=== PATIENT | male | born 1935 | race Caucasian/White ===

== ENCOUNTER 2016-07-19 11:07 | Emergency (ER) | payer OTHER ==
[~2016-07-19 11:07] MED LIST: ASPI81CH PO; ASPI81TA85 PO; ATOR80TA14 PO; CLOP75TA2 PO; COLA100C PO; DOCU10CA PO; FURO20TA2 PO; IMDU30TA PO; LASI20TA PO; LIPI80TA PO; LISI-538 PO; MAALSUS8 PO; MOM30SS PO; NITR4TASL SL; NORCOTAB PO; PRIL20CA PO; TYLE325T5 PO; ZEST20TA8 PO; aspirin; imdur; lipitor; lisinopril; nitrostat; spiriva INH
[2016-07-19 11:26] LABS: BASO # 0.1 K/mm3 (0.0-0.2); BASO % 1.3 % (0.0-1.0); EOS # 0.2 K/mm3 (0.0-0.50); EOS % 2.2 % (0.0-3.0); LARGE UNSTAINED CELL # 0.2 K/mm3 (0.0-0.4); LARGE UNSTAINED CELL % 2.4 % (0.0-4.0); LYMPH % 38.8 % (24.0-44.0); MEAN CORPUSCULAR HEMOGLOBIN 28.8 pg (27.0-33.0); MEAN CORPUSCULAR HGB CONC 32.8 g/dl (32.0-36.5); MEAN CORPUSCULAR VOLUME 87.7 fl (80.0-96.0); MONO # 0.5 K/mm3 (0.0-0.8); MONO % 6.9 % (0.0-5.0); NEUTROPHILS # 3.5 K/mm3 (1.8-7.7); NEUTROPHILS % 48.4 % (36.0-66.0); PLATELET COUNT, AUTOMATED 178 k/mm3 (150-450); RED CELL DISTRIBUTION WIDTH 13.8 % (11.5-14.5); WHITE BLOOD COUNT 7.2 K/mm3 (4.0-10.0)
[2016-07-19 11:47] LABS: ANION GAP 7 MEQ/L (8-16); BLOOD UREA NITROGEN 20 MG/DL (7-18); CALCIUM LEVEL 8.5 MG/DL (8.8-10.2); CARBON DIOXIDE LEVEL 27 MEQ/L (21-32); CHLORIDE LEVEL 108 MEQ/L (98-107); CREATININE FOR GFR 1.25 MG/DL (0.70-1.30); GLOMERULAR FILTRATION RATE 59.3 (>42); GLUCOSE, FASTING 135 MG/DL (83-110); POTASSIUM SERUM 4.1 MEQ/L (3.5-5.1); SODIUM LEVEL 142 MEQ/L (136-145)
--- NOTE | 2016-07-19 12:02 | REP ---
CHEST X-RAY: Portable upright semi-erect view. HISTORY: Chest pain. Comparison chest x-ray April 12, 2015. FINDINGS: There are old granulomatous calcifications scattered about the lung watson bilaterally. EKG monitoring electrodes overlie the chest. Heart is not felt to be enlarged. The aorta is somewhat tortuous. Pulmonary vasculature is not increased. No infiltrate is seen. IMPRESSION: No active disease. Old granulomatous changes. Signed by Les Menon MD 07/19/2016 02:00 P
--- NOTE | 2016-07-19 15:02 | EDDOCDS ---
Physician Documentation [facility] Name: Celso Armando Age: 80 yrs Sex: Male : 1935 Arrival Date: 07/19/2016 Time: 11:07 Bed 12 Private MD: Zhane Dawkins A Disposition: 07/19/16 14:50 Discharged to Home/Self Care. Impression: Chest pain, unspecified. - Condition is Stable. - Discharge Instructions: Nonspecific Chest Pain. - Medication Reconciliation, Local Pharmacy Hours form. - Follow up: Zhane Dwakins; When: Call to arrange an appointment; Reason: Recheck today's complaints. - Problem is new. - Symptoms have improved. - Notes: You were evaluated in the emergency department for chest pain. Your laboratory results reported no acute changes. Your EKG reported no acute changes from a prior EKG. Please schedule an appointment withZhane Dawkinsat your soonest convenience to follow-up on today's complaints. Historical: - Allergies: no known allergies; - Home Meds: 1. Lipitor 40 mg Oral tab 1 tab once daily (Last dose: 07/19/2016 07:00) 2. aspirin 81 mg Oral tab 1 tab once daily (Last dose: 07/19/2016 07:00) - PMHx: [place] x 2; colon CA; Hypercholesterolemia; - PSHx: stents x 2; Colon Resection; Hernia repair- Umbilical; Shoulder Arthroplasty, Left; right thumb amputation; - Social history: Smoking status: Patient states was never smoker of tobacco. No barriers to communication noted, Speaks appropriately for age. - Family history: Not pertinent. - : The pt / caregiver states he / she is not on anticoagulants. Home medication list is obtained from the patient, Unable to Verify Home Med List with the patient / caregiver. - Exposure Risk Screening:: None identified. Vital Signs: 07/19 11:08 BP 147 / 76; Pulse 114; Resp 18 S; Temp 97.1; Pulse Ox 97% on R/A; Weight 98.88 kg / dd6 217.99 lbs (R); Height 5 ft. 9 in. (175.26 cm); 11:21 BP 138 / 72 (auto/); ml6 11:21 Pulse 46 MON; Resp 16; Pulse Ox 94% on R/A; ml6 11:36 BP 126 / 64 (auto/); ml6 11:36 Pulse 46 MON; Resp 16; Pulse Ox 93% on R/A; ml6 11:51 BP 133 / 73 (auto/); ml6 11:51 Pulse 48 MON; Resp 16; Pulse Ox 93% on R/A; Pain 0/10; ml6 12:06 BP 128 / 69 (auto/); ml6 12:06 Pulse 42 MON; Resp 16; Pulse Ox 94% on R/A; Pain 0/10; ml6 12:21 BP 133 / 75 (auto/); ml6 12:21 Pulse 44 MON; Resp 16; Pulse Ox 94% on R/A; Pain 0/10; ml6 12:36 BP 131 / 73 (auto/); ml6 12:36 Pulse 44 MON; Resp 18; Pulse Ox 93% on R/A; ml6 12:51 BP 134 / 65 (auto/); ml6 12:51 Pulse 44 MON; Resp 16; Pulse Ox 94% on R/A; ml6 12:51 BP 155 / 62; Pulse 44; Resp 16; Temp 97.4(O); Pulse Ox 98% on R/A; Pain 0/10; ml6 13:06 BP 132 / 71 (auto/); ml6 13:06 Pulse 44 MON; Resp 16; Pulse Ox 93% on R/A; ml6 13:21 BP 130 / 68 (auto/); ml6 13:21 Pulse 42 MON; Resp 16; Pulse Ox 93% on R/A; ml6 13:36 BP 136 / 74 (auto/); ml6 13:36 Pulse 42 MON; Resp 16; Pulse Ox 93% on R/A; ml6 13:51 BP 134 / 71 (auto/); ml6 13:51 Pulse 40 MON; Resp 16; Pulse Ox 97% on R/A; Pain 0/10; ml6 14:06 BP 149 / 83 (auto/); ml6 14:06 Pulse 50 MON; Resp 16; Pulse Ox 95% on R/A; Pain 0/10; ml6 14:21 BP 163 / 64 (auto/); ml6 14:21 Pulse 44 MON; Resp 16; Pulse Ox 94% on R/A; Pain 0/10; ml6 11:08 Body Mass Index 32.19 (98.88 kg, 175.26 cm) dd6 MDM: 11:13 ECG WITH READING ER PHYS+CARDIAG ordered. EDMS 11:14 Dopeman/Pulse Ox/q 30 min VS ordered. sd1 11:14 IV Saline Lock ordered. sd1 11:14 Rhythm Strip to chart ordered. sd1 11:14 Undress patient appropriately for examination ordered. sd1 11:14 portable chest Ordered. EDMS 11:14 Basic Metabolic Profile Ordered. EDMS 11:14 CBC with Diff Ordered. EDMS 11:15 Cardiac Injury Profile Ordered. EDMS 11:15 Troponin Ordered. EDMS 12:00 Basic Metabolic Profile Reviewed. sd1 12:00 CBC with Diff Reviewed. sd1 12:00 Cardiac Injury Profile Reviewed. sd1 12:00 Troponin Reviewed. sd1 12:12 Financial registration complete. mm15 13:24 [facility] Payment Agreement was scanned into [employer] and attached to record. mm15 13:56 Repeat EKG (put time details section) ordered. jo4 13:56 Redraw CIP &Troponin (put time in details section) ordered. jo4 14:00 Redraw CIP &Troponin (put time in details section) complete. lbd 14:00 Repeat EKG (put time details section) complete. lbd 14:02 ECG WITH READING ER PHYS ordered. EDMS 14:03 CARDIAC MARKER PANEL Ordered. EDMS 14:46 CARDIAC MARKER PANEL Reviewed. jo4 Signatures: Dispatcher [employer] EDMS Summer Robb MD MD sd1 Kelli Collins, Conference Reservationist Unit lbd Aleks Medrano, RN RN ml6 Lamar Olmstead mm15 Mel Luna DO DO jo4 The chart was reviewed and I authenticate all verbal orders and agree with the evaluation and treatment provided.Attachments: 13:24 [facility] mm15 MTDD
--- NOTE | 2016-07-19 15:02 | EDDOCDS ---
Nurse's Notes [facility] Name: Celso Armando Age: 80 yrs Sex: Male : 1935 Arrival Date: 07/19/2016 Time: 11:07 Bed 12 Private MD: Zhane Dawkins A Diagnosis: Chest pain, unspecified Presentation: 07/19 11:10 Presenting complaint: Patient states: states substernal chest pain since 0700. Aspirin ml6 was taken DERRICK MAN. 81mg. Adult Sepsis Screening: The patient does not have new or worsening altered mentation. Patient's respiratory rate is less than 22. Systolic blood pressure is greater than 100. Patient has a qSOFA score of 0- Negative Sepsis Screen. Suicide/Homicide risk assessment- the patient denies having any suicidal and/or homicidal ideations and does not present with any other emotional, behavioral or mental health complaints. 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 Transition of care: patient was not received from another setting of care. 11:10 Acuity: JOSE ANTONIO Level 2 ml6 11:10 Method Of Arrival: Walkin/Carried/Asstd ml6 Triage Assessment: 11:10 General: Appears in no apparent distress, Behavior is anxious, cooperative. Pain: ml6 Location: chest Pain currently is 4 out of 10 on a pain scale. Pain does not radiate. Quality of pain is described as sharp, Pain began 3 hours ago Is continuous Alleviated by nothing. Aggravated by increased activity. The patient is triaged at the bedside. See Assessment in Nurses Notes section of ED record. Neurological: No deficits noted. 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 Cardiovascular: Capillary refill < 3 seconds is brisk in bilateral fingers toes Heart tones S1 S2 present Edema is absent. Pulses are all present. Rhythm is sinus bradycardia No ectopy. Chest pain is described as mild, quality is stabbing, is located in substernal area radiates Does not radiate. episodes are continuous began 4 hours prior to arrival. Respiratory: No deficits noted. Airway is patent Respiratory effort is even, unlabored, Respiratory pattern is regular, symmetrical, Breath sounds are clear bilaterally. GI: No deficits noted. Abdomen is flat, non- distended Bowel sounds present X 4 quads. Historical: - Allergies: no known allergies; - Home Meds: 1. Lipitor 40 mg Oral tab 1 tab once daily (Last dose: 07/19/2016 07:00) 2. aspirin 81 mg Oral tab 1 tab once daily (Last dose: 07/19/2016 07:00) - PMHx: [place] x 2; colon CA; Hypercholesterolemia; - PSHx: stents x 2; Colon Resection; Hernia repair- Umbilical; Shoulder Arthroplasty, Left; right thumb amputation; - Social history: Smoking status: Patient states was never smoker of tobacco. No barriers to communication noted, Speaks appropriately for age. - Family history: Not pertinent. - : The pt / caregiver states he / she is not on anticoagulants. Home medication list is obtained from the patient, Unable to Verify Home Med List with the patient / caregiver. - Exposure Risk Screening:: None identified. Screenin:29 Screening information is obtained from the patient. Fall risk: No risks identified. ml6 Assistance ADL's: requires no assistance with activities of daily living. Abuse/DV Screen: The patient / caregiver reports he/she is: not in a situation that causes fear, pain or injury. Nutritional screening: No deficits noted. Advance Directives: Currently, there is no health care proxy. home support is adequate. Assessment: 11:10 General: see triage assessment. Cardiovascular: Capillary refill < 3 seconds is brisk ml6 in bilateral fingers toes Heart tones S1 S2 present Edema is absent. Pulses are all present. Rhythm is sinus bradycardia No ectopy. Chest pain is described as mild, quality is stabbing, is located in substernal area radiates Does not radiate. episodes are continuous began 4 hours prior to arrival is aggravated by activity. 12:04 General: Appears in no apparent distress, comfortable, Behavior is appropriate for age, ml6 cooperative. Pain: Denies pain. Neurological: No deficits noted. Level of Consciousness is awake, alert, Oriented to person, place, time. Cardiovascular: No deficits noted. Capillary refill < 3 seconds is brisk in bilateral fingers toes Heart tones S1 S2 present Edema is absent. Pulses are all present. Rhythm is sinus bradycardia No ectopy. Chest pain is denied. Respiratory: No deficits noted. Airway is patent Respiratory effort is even, unlabored, Respiratory pattern is regular, symmetrical, Breath sounds are clear bilaterally. GI: No deficits noted. Abdomen is flat, non- distended Bowel sounds present X 4 quads. Abd is soft and non tender X 4 quads. 13:02 Reassessment: Patient appears in no apparent distress at this time. Patient denies pain ml6 at this time. Patient states feeling better. Patient states symptoms have improved. 14:02 Reassessment: Patient appears in no apparent distress at this time. Patient denies pain ml6 at this time. Patient states feeling better. Patient states symptoms have improved. NO CHANGE FROM PREVIOUS ASSESSMENT, PATIENT SLEEPING SOUNDLY. 14:59 General: Appears in no apparent distress, comfortable, Behavior is appropriate for age, ml6 cooperative. Pain: Denies pain. Neurological: No deficits noted. Level of Consciousness is awake, alert, Oriented to person, place, time. Cardiovascular: No deficits noted. Capillary refill < 3 seconds is brisk in bilateral fingers toes Heart tones S1 S2 present Edema is absent. Pulses are all present. Rhythm is sinus bradycardia No ectopy. Chest pain is denied. Vital Signs: 11:08 BP 147 / 76; Pulse 114; Resp 18 S; Temp 97.1; Pulse Ox 97% on R/A; Weight 98.88 kg (R); dd6 Height 5 ft. 9 in. (175.26 cm); 11:21 BP 138 / 72 (auto/); ml6 11:21 Pulse 46 MON; Resp 16; Pulse Ox 94% on R/A; ml6 11:36 BP 126 / 64 (auto/); ml6 11:36 Pulse 46 MON; Resp 16; Pulse Ox 93% on R/A; ml6 11:51 BP 133 / 73 (auto/); ml6 11:51 Pulse 48 MON; Resp 16; Pulse Ox 93% on R/A; Pain 0/10; ml6 12:06 BP 128 / 69 (auto/); ml6 12:06 Pulse 42 MON; Resp 16; Pulse Ox 94% on R/A; Pain 0/10; ml6 12:21 BP 133 / 75 (auto/); ml6 12:21 Pulse 44 MON; Resp 16; Pulse Ox 94% on R/A; Pain 0/10; ml6 12:36 BP 131 / 73 (auto/); ml6 12:36 Pulse 44 MON; Resp 18; Pulse Ox 93% on R/A; ml6 12:51 BP 134 / 65 (auto/); ml6 12:51 Pulse 44 MON; Resp 16; Pulse Ox 94% on R/A; ml6 12:51 BP 155 / 62; Pulse 44; Resp 16; Temp 97.4(O); Pulse Ox 98% on R/A; Pain 0/10; ml6 13:06 BP 132 / 71 (auto/); ml6 13:06 Pulse 44 MON; Resp 16; Pulse Ox 93% on R/A; ml6 13:21 BP 130 / 68 (auto/); ml6 13:21 Pulse 42 MON; Resp 16; Pulse Ox 93% on R/A; ml6 13:36 BP 136 / 74 (auto/); ml6 13:36 Pulse 42 MON; Resp 16; Pulse Ox 93% on R/A; ml6 13:51 BP 134 / 71 (auto/); ml6 13:51 Pulse 40 MON; Resp 16; Pulse Ox 97% on R/A; Pain 0/10; ml6 14:06 BP 149 / 83 (auto/); ml6 14:06 Pulse 50 MON; Resp 16; Pulse Ox 95% on R/A; Pain 0/10; ml6 14:21 BP 163 / 64 (auto/); ml6 14:21 Pulse 44 MON; Resp 16; Pulse Ox 94% on R/A; Pain 0/10; ml6 11:08 Body Mass Index 32.19 (98.88 kg, 175.26 cm) dd6 Vitals: 11:08 Log In Time: July 19, 2016 at 11:06. dd6 11:09 RN notified that patient meets Red Flag criteria. dd6 ED Course: 11:08 Patient visited by Pillo Herrera PCA. dd6 11:08 Zhane Dawkins is Private Physician. dd6 11:08 Patient moved to Waiting dd6 11:10 Patient moved to 12 dd6 11:10 The patient / caregiver is instructed regarding the plan of care and ED course. Cardiac ml6 monitor on. Pulse ox on. NIBP on. 11:10 Inserted peripheral IV: 16gauge IV in right antecubital area. No procedures done that ml6 require assistance. Labs drawn. (by ED staff). 11:20 Mel [facility] jo4 11:20 Summer Robb MD is Attending Physician. jo4 11:23 Triage Initiated ml6 11:29 EKG done. (by ED staff). Reviewed by Mel Luna DO. jb5 11:30 Patient visited by Sugar Leal PCA. jb5 11:43 Patient visited by Mel Luna DO. jo4 11:43 Patient visited by Mel Luna DO. jo4 12:15 portable chest Returned. EDMS 12:21 Patient visited by Aleks Medrano RN. ml6 13:08 Patient visited by Aleks Medrano RN. ml6 13:24 [facility] Payment Agreement was scanned into [employer] and attached to record. mm15 14:07 Patient visited by Aleks Medrano RN. ml6 14:13 EKG done. (by ED staff). Reviewed by Mel Luna DO. nb2 14:16 Patient visited by Stacey Smith. nb2 14:50 Zhane Dawkins is Referral Physician. jo4 15:00 Discontinued IV bleeding controlled, pressure dressing applied, No redness/swelling at 6 site. Order Results: Lab Order: Basic Metabolic Profile; SPEC'M 07/19/16 11:20 Test: GLUCOSE, FASTING; Value: 135; Range: 83-110; Abnormal: Above high normal; Units: MG/DL; Status: F Test: BLOOD UREA NITROGEN; Value: 20; Range: 7-18; Abnormal: Above high normal; Units: MG/DL; Status: F Test: CREATININE FOR GFR; Value: 1.25; Range: 0.70-1.30; Units: MG/DL; Status: F Test: GLOMERULAR FILTRATION RATE; Value: 59.3; Range: >42; Status: F Test: SODIUM LEVEL; Value: 142; Range: 136-145; Units: MEQ/L; Status: F Test: POTASSIUM SERUM; Value: 4.1; Range: 3.5-5.1; Units: MEQ/L; Status: F Test: CHLORIDE LEVEL; Value: 108; Range: 98-107; Abnormal: Above high normal; Units: MEQ/L; Status: F Test: CARBON DIOXIDE LEVEL; Value: 27; Range: 21-32; Units: MEQ/L; Status: F Test: ANION GAP; Value: 7; Range: 8-16; Abnormal: Below low normal; Units: MEQ/L; Status: F Test: CALCIUM LEVEL; Value: 8.5; Range: 8.8-10.2; Abnormal: Below low normal; Units: MG/DL; Status: F Test Note: ; Units are mL/min/1.73 m2 Chronic Kidney Disease Staging per NKF: Stage I & II GFR >=60 Normal to Mildly Decreased Stage III GFR 30-59 Moderately Decreased Stage IV GFR 15-29 Severely Decreased Stage V GFR <15 Very Little GFR Left ESRD GFR <15 on TREE TRIMMING SUPERVISOR Lab Order: CBC with Diff; SPEC'M 07/19/16 11:20 Test: WHITE BLOOD COUNT; Value: 7.2; Range: 4.0-10.0; Units: K/mm3; Status: F Test: RED BLOOD COUNT; Value: 5.29; Range: 4.30-6.10; Units: M/mm3; Status: F Test: HEMOGLOBIN; Value: 15.2; Range: 14.0-18.0; Units: g/dl; Status: F Test: HEMATOCRIT; Value: 46.4; Range: 42.0-52.0; Units: %; Status: F Test: MEAN CORPUSCULAR VOLUME; Value: 87.7; Range: 80.0-96.0; Units: fl; Status: F Test: MEAN CORPUSCULAR HEMOGLOBIN; Value: 28.8; Range: 27.0-33.0; Units: pg; Status: F Test: MEAN CORPUSCULAR HGB CONC; Value: 32.8; Range: 32.0-36.5; Units: g/dl; Status: F Test: RED CELL DISTRIBUTION WIDTH; Value: 13.8; Range: 11.5-14.5; Units: %; Status: F Test: PLATELET COUNT, AUTOMATED; Value: 178; Range: 150-450; Units: k/mm3; Status: F Test: NEUTROPHILS %; Value: 48.4; Range: 36.0-66.0; Units: %; Status: F Test: LYMPH %; Value: 38.8; Range: 24.0-44.0; Units: %; Status: F Test: MONO %; Value: 6.9; Range: 0.0-5.0; Abnormal: Above high normal; Units: %; Status: F Test: EOS %; Value: 2.2; Range: 0.0-3.0; Units: %; Status: F Test: BASO %; Value: 1.3; Range: 0.0-1.0; Abnormal: Above high normal; Units: %; Status: F Test: LARGE UNSTAINED CELL %; Value: 2.4; Range: 0.0-4.0; Units: %; Status: F Test: NEUTROPHILS #; Value: 3.5; Range: 1.8-7.7; Units: K/mm3; Status: F Test: LYMPH #; Value: 3.0; Range: 1.5-4.5; Units: K/mm3; Status: F Test: MONO #; Value: 0.5; Range: 0.0-0.8; Units: K/mm3; Status: F Test: EOS #; Value: 0.2; Range: 0.0-0.50; Units: K/mm3; Status: F Test: BASO #; Value: 0.1; Range: 0.0-0.2; Units: K/mm3; Status: F Test: LARGE UNSTAINED CELL #; Value: 0.2; Range: 0.0-0.4; Units: K/mm3; Status: F Lab Order: Cardiac Injury Profile; SPEC'M 07/19/16 11:20 Test: CPK CREATINE PHOSPHOKINASE; Value: 98; Range: 39-308; Units: U/L; Status: F Test: CK-MB VALUE MASS; Value: 1.8; Range: 0.0-3.6; Units: NG/ML; Status: F Test: MB/CK RELATIVE INDEX; Value: 1.83; Range: < OR =4; Status: F Test Note: ; DIAGNOSIS CRITERIA MMB ng/ml Relative Index (RI) NON-AMI < or = 5 N/A PHIPPS ZONE > 5 < or = 4 AMI > 5 > 4 Lab Order: Troponin; SPEC'M 07/19/16 11:20 Test: TROPONIN I; Value: < 0.02; Range: < 0.10; Units: NG/ML; Status: F Test Note: ; Troponin I Reference Interval for [place] LOCI: 99th Percentile= 0.00-0.045 ng/ml Risk Stratification: <= 0.10 ng/ml Decreased Risk for Adverse Clinical Events. 0.10-1.50 ng/ml Increased Risk for Adverse Clinical Events. Evaluation of additional criterion and/or repeat testing in 2-6 hours is suggested to rule out myocardial damage. >= 1.50 ng/ml Indicative of Myocardial Injury. Lab Order: CARDIAC MARKER PANEL; SPEC'M 07/19/16 14:12 Test: CPK CREATINE PHOSPHOKINASE; Value: 91; Range: 39-308; Units: U/L; Status: F Test: CK-MB VALUE MASS; Value: 1.8; Range: 0.0-3.6; Units: NG/ML; Status: F Test: MB/CK RELATIVE INDEX; Value: 1.97; Range: < OR =4; Status: F Test: TROPONIN I; Value: < 0.02; Range: < 0.10; Units: NG/ML; Status: F Test Note: ; DIAGNOSIS CRITERIA MMB ng/ml Relative Index (RI) NON-AMI < or = 5 N/A PHIPPS ZONE > 5 < or = 4 AMI > 5 > 4 Radiology Order: portable chest Test: portable chest REASON FOR EXAMINATION: Chest Pain; CHEST X-RAY: Portable upright semi-erect view.; ; HISTORY: Chest pain.; ; Comparison chest x-ray April 12, 2015.; ; FINDINGS: There are old granulomatous calcifications scattered about the lung; watson bilaterally. EKG monitoring electrodes overlie the chest. Heart is not; felt to be enlarged. The aorta is somewhat tortuous. Pulmonary vasculature is; not increased. No infiltrate is seen.; ; IMPRESSION: No active disease. Old granulomatous changes.; ; ; Signed by; Les Menon MD 07/19/2016 02:00 P; Outcome: 14:50 Discharge ordered by Provider. jo4 15:01 Discharge Assessment: patient administered narcotics - no. The following High Risk ml6 Discharge criteria are identified: None. Discharged to home ambulatory, with significant other. Condition: stable. Discharge instructions given to patient, Instructed on discharge instructions, Demonstrated understanding of instructions, medications, Pt was receptive of discharge instructions/ teaching. No special radiology studies were completed. Property sent home with patient. :Personal belongings accompany Pt. 15:01 Patient left the ED. ml6 Signatures: Dispatcher [employer] EDMS Sugar Leal PCA RECREATION COUNSELOR jb5 Pillo Herrera, RECREATION COUNSELOR RECREATION COUNSELOR dd6 Aleks Medrano, RN RN ml6 Lamar Olmstead mm15 Mel Luna DO DO jo4 Stacey Smith2 Corrections: (The following items were deleted from the chart) 11:30 11:10 Labs drawn. (by ED staff). EKG done. (by ED staff). Reviewed by Summer Robb MD ml6 MTDD
--- NOTE | 2016-07-19 19:29 | ECGEPIP ---
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
--- NOTE | 2016-07-21 15:28 | ECGEPIP ---
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
--- NOTE | 2016-07-21 16:03 | EDDOCDS ---
Physician Documentation [facility] Name: Celso Armando Age: 80 yrs Sex: Male : 1935 Arrival Date: 07/19/2016 Time: 11:07 Bed 12 Private MD: Zhane Dawkins A Disposition: 07/19/16 14:50 Discharged to Home/Self Care. Impression: Chest pain, unspecified. - Condition is Stable. - Discharge Instructions: Nonspecific Chest Pain. - Medication Reconciliation, Local Pharmacy Hours form. - Follow up: Zhane Dawkins; When: Call to arrange an appointment; Reason: Recheck today's complaints. - Problem is new. - Symptoms have improved. - Notes: You were evaluated in the emergency department for chest pain. Your laboratory results reported no acute changes. Your EKG reported no acute changes from a prior EKG. Please schedule an appointment withZhane Dawkinsat your soonest convenience to follow-up on today's complaints. Historical: - Allergies: no known allergies; - Home Meds: 1. Lipitor 40 mg Oral tab 1 tab once daily (Last dose: 07/19/2016 07:00) 2. aspirin 81 mg Oral tab 1 tab once daily (Last dose: 07/19/2016 07:00) - PMHx: [place] x 2; colon CA; Hypercholesterolemia; - PSHx: stents x 2; Colon Resection; Hernia repair- Umbilical; Shoulder Arthroplasty, Left; right thumb amputation; - Social history: Smoking status: Patient states was never smoker of tobacco. No barriers to communication noted, Speaks appropriately for age. - Family history: Not pertinent. - : The pt / caregiver states he / she is not on anticoagulants. Home medication list is obtained from the patient, Unable to Verify Home Med List with the patient / caregiver. - Exposure Risk Screening:: None identified. Vital Signs: 07/19 11:08 BP 147 / 76; Pulse 114; Resp 18 S; Temp 97.1; Pulse Ox 97% on R/A; Weight 98.88 kg / dd6 217.99 lbs (R); Height 5 ft. 9 in. (175.26 cm); 11:21 BP 138 / 72 (auto/); ml6 11:21 Pulse 46 MON; Resp 16; Pulse Ox 94% on R/A; ml6 11:36 BP 126 / 64 (auto/); ml6 11:36 Pulse 46 MON; Resp 16; Pulse Ox 93% on R/A; ml6 11:51 BP 133 / 73 (auto/); ml6 11:51 Pulse 48 MON; Resp 16; Pulse Ox 93% on R/A; Pain 0/10; ml6 12:06 BP 128 / 69 (auto/); ml6 12:06 Pulse 42 MON; Resp 16; Pulse Ox 94% on R/A; Pain 0/10; ml6 12:21 BP 133 / 75 (auto/); ml6 12:21 Pulse 44 MON; Resp 16; Pulse Ox 94% on R/A; Pain 0/10; ml6 12:36 BP 131 / 73 (auto/); ml6 12:36 Pulse 44 MON; Resp 18; Pulse Ox 93% on R/A; ml6 12:51 BP 134 / 65 (auto/); ml6 12:51 Pulse 44 MON; Resp 16; Pulse Ox 94% on R/A; ml6 12:51 BP 155 / 62; Pulse 44; Resp 16; Temp 97.4(O); Pulse Ox 98% on R/A; Pain 0/10; ml6 13:06 BP 132 / 71 (auto/); ml6 13:06 Pulse 44 MON; Resp 16; Pulse Ox 93% on R/A; ml6 13:21 BP 130 / 68 (auto/); ml6 13:21 Pulse 42 MON; Resp 16; Pulse Ox 93% on R/A; ml6 13:36 BP 136 / 74 (auto/); ml6 13:36 Pulse 42 MON; Resp 16; Pulse Ox 93% on R/A; ml6 13:51 BP 134 / 71 (auto/); ml6 13:51 Pulse 40 MON; Resp 16; Pulse Ox 97% on R/A; Pain 0/10; ml6 14:06 BP 149 / 83 (auto/); ml6 14:06 Pulse 50 MON; Resp 16; Pulse Ox 95% on R/A; Pain 0/10; ml6 14:21 BP 163 / 64 (auto/); ml6 14:21 Pulse 44 MON; Resp 16; Pulse Ox 94% on R/A; Pain 0/10; ml6 11:08 Body Mass Index 32.19 (98.88 kg, 175.26 cm) dd6 MDM: 11:13 ECG WITH READING ER PHYS+CARDIAG ordered. EDMS 11:14 Studio Grip/Pulse Ox/q 30 min VS ordered. sd1 11:14 IV Saline Lock ordered. sd1 11:14 Rhythm Strip to chart ordered. sd1 11:14 Undress patient appropriately for examination ordered. sd1 11:14 portable chest Ordered. EDMS 11:14 Basic Metabolic Profile Ordered. EDMS 11:14 CBC with Diff Ordered. EDMS 11:15 Cardiac Injury Profile Ordered. EDMS 11:15 Troponin Ordered. EDMS 12:00 Basic Metabolic Profile Reviewed. sd1 12:00 CBC with Diff Reviewed. sd1 12:00 Cardiac Injury Profile Reviewed. sd1 12:00 Troponin Reviewed. sd1 12:12 Financial registration complete. mm15 13:24 COUNT INCLUDES THE [facility] Payment Agreement was scanned into [employer] and attached to record. mm15 13:56 Repeat EKG (put time details section) ordered. jo4 13:56 Redraw CIP &Troponin (put time in details section) ordered. jo4 14:00 Redraw CIP &Troponin (put time in details section) complete. lbd 14:00 Repeat EKG (put time details section) complete. lbd 14:02 ECG WITH READING ER PHYS ordered. EDMS 14:03 CARDIAC MARKER PANEL Ordered. EDMS 14:46 CARDIAC MARKER PANEL Reviewed. [facility] 07/20 08:12 ECG/EKG was scanned into [employer] and attached to record. gb 09:25 T-Sheet-- Draft Copy was scanned into [employer] and attached to record. [facility] Signatures: Dispatcher [employer] EDSummer Amaya MD MD sd1 Kelli Collins, Stage Producer Unit lbd Brisa Shah, Reg Reg gb Aleks Medrano, RN RN ml6 Lamar Olmstead mm15 Mel Luna DO DO jo4 Hoffert, Sarah [facility] The chart was reviewed and I authenticate all verbal orders and agree with the evaluation and treatment provided.Attachments: 07/19 13:24 COUNT INCLUDES THE [facility] Payment Agreement mm15 07/20 08:12 ECG/EKG gb 09:25 T-Sheet-- Draft Copy [facility] Chart Complete MTDD
--- NOTE | 2016-07-21 16:03 | EDDOCDS ---
Physician Documentation [facility] Name: Celso Armando Age: 80 yrs Sex: Male : 1935 Arrival Date: 07/19/2016 Time: 11:07 Bed 12 Private MD: Zhane Dawkins A Disposition: 07/19/16 14:50 Discharged to Home/Self Care. Impression: Chest pain, unspecified. - Condition is Stable. - Discharge Instructions: Nonspecific Chest Pain. - Medication Reconciliation, Local Pharmacy Hours form. - Follow up: Zhane Dawkins; When: Call to arrange an appointment; Reason: Recheck today's complaints. - Problem is new. - Symptoms have improved. - Notes: You were evaluated in the emergency department for chest pain. Your laboratory results reported no acute changes. Your EKG reported no acute changes from a prior EKG. Please schedule an appointment withZhane Dawkinsat your soonest convenience to follow-up on today's complaints. Historical: - Allergies: no known allergies; - Home Meds: 1. Lipitor 40 mg Oral tab 1 tab once daily (Last dose: 07/19/2016 07:00) 2. aspirin 81 mg Oral tab 1 tab once daily (Last dose: 07/19/2016 07:00) - PMHx: CT x 2; colon CA; Hypercholesterolemia; - PSHx: stents x 2; Colon Resection; Hernia repair- Umbilical; Shoulder Arthroplasty, Left; right thumb amputation; - Social history: Smoking status: Patient states was never smoker of tobacco. No barriers to communication noted, Speaks appropriately for age. - Family history: Not pertinent. - : The pt / caregiver states he / she is not on anticoagulants. Home medication list is obtained from the patient, Unable to Verify Home Med List with the patient / caregiver. - Exposure Risk Screening:: None identified. Vital Signs: 07/19 11:08 BP 147 / 76; Pulse 114; Resp 18 S; Temp 97.1; Pulse Ox 97% on R/A; Weight 98.88 kg / dd6 217.99 lbs (R); Height 5 ft. 9 in. (175.26 cm); 11:21 BP 138 / 72 (auto/); ml6 11:21 Pulse 46 MON; Resp 16; Pulse Ox 94% on R/A; ml6 11:36 BP 126 / 64 (auto/); ml6 11:36 Pulse 46 MON; Resp 16; Pulse Ox 93% on R/A; ml6 11:51 BP 133 / 73 (auto/); ml6 11:51 Pulse 48 MON; Resp 16; Pulse Ox 93% on R/A; Pain 0/10; ml6 12:06 BP 128 / 69 (auto/); ml6 12:06 Pulse 42 MON; Resp 16; Pulse Ox 94% on R/A; Pain 0/10; ml6 12:21 BP 133 / 75 (auto/); ml6 12:21 Pulse 44 MON; Resp 16; Pulse Ox 94% on R/A; Pain 0/10; ml6 12:36 BP 131 / 73 (auto/); ml6 12:36 Pulse 44 MON; Resp 18; Pulse Ox 93% on R/A; ml6 12:51 BP 134 / 65 (auto/); ml6 12:51 Pulse 44 MON; Resp 16; Pulse Ox 94% on R/A; ml6 12:51 BP 155 / 62; Pulse 44; Resp 16; Temp 97.4(O); Pulse Ox 98% on R/A; Pain 0/10; ml6 13:06 BP 132 / 71 (auto/); ml6 13:06 Pulse 44 MON; Resp 16; Pulse Ox 93% on R/A; ml6 13:21 BP 130 / 68 (auto/); ml6 13:21 Pulse 42 MON; Resp 16; Pulse Ox 93% on R/A; ml6 13:36 BP 136 / 74 (auto/); ml6 13:36 Pulse 42 MON; Resp 16; Pulse Ox 93% on R/A; ml6 13:51 BP 134 / 71 (auto/); ml6 13:51 Pulse 40 MON; Resp 16; Pulse Ox 97% on R/A; Pain 0/10; ml6 14:06 BP 149 / 83 (auto/); ml6 14:06 Pulse 50 MON; Resp 16; Pulse Ox 95% on R/A; Pain 0/10; ml6 14:21 BP 163 / 64 (auto/); ml6 14:21 Pulse 44 MON; Resp 16; Pulse Ox 94% on R/A; Pain 0/10; ml6 11:08 Body Mass Index 32.19 (98.88 kg, 175.26 cm) dd6 MDM: 11:13 ECG WITH READING ER PHYS+CARDIAG ordered. EDMS 11:14 Physical Fitness Teacher/Pulse Ox/q 30 min VS ordered. sd1 11:14 IV Saline Lock ordered. sd1 11:14 Rhythm Strip to chart ordered. sd1 11:14 Undress patient appropriately for examination ordered. sd1 11:14 portable chest Ordered. EDMS 11:14 Basic Metabolic Profile Ordered. EDMS 11:14 CBC with Diff Ordered. EDMS 11:15 Cardiac Injury Profile Ordered. EDMS 11:15 Troponin Ordered. EDMS 12:00 Basic Metabolic Profile Reviewed. sd1 12:00 CBC with Diff Reviewed. sd1 12:00 Cardiac Injury Profile Reviewed. sd1 12:00 Troponin Reviewed. sd1 12:12 Financial registration complete. mm15 13:24 [facility] Payment Agreement was scanned into [employer] and attached to record. mm15 13:56 Repeat EKG (put time details section) ordered. jo4 13:56 Redraw CIP &Troponin (put time in details section) ordered. jo4 14:00 Redraw CIP &Troponin (put time in details section) complete. lbd 14:00 Repeat EKG (put time details section) complete. lbd 14:02 ECG WITH READING ER PHYS ordered. EDMS 14:03 CARDIAC MARKER PANEL Ordered. EDMS 14:46 CARDIAC MARKER PANEL Reviewed. [facility] 07/20 08:12 ECG/EKG was scanned into [employer] and attached to record. gb 09:25 T-Sheet-- Draft Copy was scanned into [employer] and attached to record. [facility] Signatures: Dispatcher [employer] EDSummer Amaya MD MD sd1 Kelli Collins, Tools Programmer Unit lbd Brisa Shah, Reg Reg gb Aleks Medrano, RN RN ml6 Lamar Olmstead mm15 Mel Luna DO DO jo4 Hoffert, Sarah [facility] The chart was reviewed and I authenticate all verbal orders and agree with the evaluation and treatment provided.Attachments: 07/19 13:24 [facility] Payment Agreement mm15 07/20 08:12 ECG/EKG gb 09:25 T-Sheet-- Draft Copy [facility] Chart Complete MTDD
--- NOTE | 2016-07-21 16:03 | EDDOCDS ---
Nurse's Notes [facility] Name: Neftaly Lopez Age: 80 yrs Sex: Male : 1935 Arrival Date: 07/19/2016 Time: 11:07 Bed 12 Private MD: Zhane Dawkins A Diagnosis: Chest pain, unspecified Presentation: 07/19 11:10 Presenting complaint: Patient states: states substernal chest pain since 0700. 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 Adult Sepsis Screening: The patient does not have new or worsening altered mentation. Patient's respiratory rate is less than 22. Systolic blood pressure is greater than 100. Patient has a qSOFA score of 0- Negative Sepsis Screen. Suicide/Homicide risk assessment- the patient denies having any suicidal and/or homicidal ideations and does not present with any other emotional, behavioral or mental health complaints. 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 Transition of care: patient was not received from another setting of care. 11:10 Acuity: JOSE ANTONIO Level 2 ml6 11:10 Method Of Arrival: Walkin/Carried/Asstd ml6 Triage Assessment: 11:10 General: Appears in no apparent distress, Behavior is anxious, cooperative. Pain: ml6 Location: chest Pain currently is 4 out of 10 on a pain scale. Pain does not radiate. Quality of pain is described as sharp, Pain began 3 hours ago Is continuous Alleviated by nothing. Aggravated by increased activity. The patient is triaged at the bedside. See Assessment in Nurses Notes section of ED record. Neurological: No deficits noted. 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 Cardiovascular: Capillary refill < 3 seconds is brisk in bilateral fingers toes Heart tones S1 S2 present Edema is absent. Pulses are all present. Rhythm is sinus bradycardia No ectopy. Chest pain is described as mild, quality is stabbing, is located in substernal area radiates Does not radiate. episodes are continuous began 4 hours prior to arrival. Respiratory: No deficits noted. Airway is patent Respiratory effort is even, unlabored, Respiratory pattern is regular, symmetrical, Breath sounds are clear bilaterally. GI: No deficits noted. Abdomen is flat, non- distended Bowel sounds present X 4 quads. Historical: - Allergies: no known allergies; - Home Meds: 1. Lipitor 40 mg Oral tab 1 tab once daily (Last dose: 07/19/2016 07:00) 2. aspirin 81 mg Oral tab 1 tab once daily (Last dose: 07/19/2016 07:00) - PMHx: CT x 2; colon CA; Hypercholesterolemia; - PSHx: stents x 2; Colon Resection; Hernia repair- Umbilical; Shoulder Arthroplasty, Left; right thumb amputation; - Social history: Smoking status: Patient states was never smoker of tobacco. No barriers to communication noted, Speaks appropriately for age. - Family history: Not pertinent. - : The pt / caregiver states he / she is not on anticoagulants. Home medication list is obtained from the patient, Unable to Verify Home Med List with the patient / caregiver. - Exposure Risk Screening:: None identified. Screenin:29 Screening information is obtained from the patient. Fall risk: No risks identified. ml6 Assistance ADL's: requires no assistance with activities of daily living. Abuse/DV Screen: The patient / caregiver reports he/she is: not in a situation that causes fear, pain or injury. Nutritional screening: No deficits noted. Advance Directives: Currently, there is no health care proxy. home support is adequate. Assessment: 11:10 General: see triage assessment. Cardiovascular: Capillary refill < 3 seconds is brisk ml6 in bilateral fingers toes Heart tones S1 S2 present Edema is absent. Pulses are all present. Rhythm is sinus bradycardia No ectopy. Chest pain is described as mild, quality is stabbing, is located in substernal area radiates Does not radiate. episodes are continuous began 4 hours prior to arrival is aggravated by activity. 12:04 General: Appears in no apparent distress, comfortable, Behavior is appropriate for age, ml6 cooperative. Pain: Denies pain. Neurological: No deficits noted. Level of Consciousness is awake, alert, Oriented to person, place, time. Cardiovascular: No deficits noted. Capillary refill < 3 seconds is brisk in bilateral fingers toes Heart tones S1 S2 present Edema is absent. Pulses are all present. Rhythm is sinus bradycardia No ectopy. Chest pain is denied. Respiratory: No deficits noted. Airway is patent Respiratory effort is even, unlabored, Respiratory pattern is regular, symmetrical, Breath sounds are clear bilaterally. GI: No deficits noted. Abdomen is flat, non- distended Bowel sounds present X 4 quads. Abd is soft and non tender X 4 quads. 13:02 Reassessment: Patient appears in no apparent distress at this time. Patient denies pain ml6 at this time. Patient states feeling better. Patient states symptoms have improved. 14:02 Reassessment: Patient appears in no apparent distress at this time. Patient denies pain ml6 at this time. Patient states feeling better. Patient states symptoms have improved. NO CHANGE FROM PREVIOUS ASSESSMENT, PATIENT SLEEPING SOUNDLY. 14:59 General: Appears in no apparent distress, comfortable, Behavior is appropriate for age, ml6 cooperative. Pain: Denies pain. Neurological: No deficits noted. Level of Consciousness is awake, alert, Oriented to person, place, time. Cardiovascular: No deficits noted. Capillary refill < 3 seconds is brisk in bilateral fingers toes Heart tones S1 S2 present Edema is absent. Pulses are all present. Rhythm is sinus bradycardia No ectopy. Chest pain is denied. Vital Signs: 11:08 BP 147 / 76; Pulse 114; Resp 18 S; Temp 97.1; Pulse Ox 97% on R/A; Weight 98.88 kg (R); dd6 Height 5 ft. 9 in. (175.26 cm); 11:21 BP 138 / 72 (auto/); ml6 11:21 Pulse 46 MON; Resp 16; Pulse Ox 94% on R/A; ml6 11:36 BP 126 / 64 (auto/); ml6 11:36 Pulse 46 MON; Resp 16; Pulse Ox 93% on R/A; ml6 11:51 BP 133 / 73 (auto/); ml6 11:51 Pulse 48 MON; Resp 16; Pulse Ox 93% on R/A; Pain 0/10; ml6 12:06 BP 128 / 69 (auto/); ml6 12:06 Pulse 42 MON; Resp 16; Pulse Ox 94% on R/A; Pain 0/10; ml6 12:21 BP 133 / 75 (auto/); ml6 12:21 Pulse 44 MON; Resp 16; Pulse Ox 94% on R/A; Pain 0/10; ml6 12:36 BP 131 / 73 (auto/); ml6 12:36 Pulse 44 MON; Resp 18; Pulse Ox 93% on R/A; ml6 12:51 BP 134 / 65 (auto/); ml6 12:51 Pulse 44 MON; Resp 16; Pulse Ox 94% on R/A; ml6 12:51 BP 155 / 62; Pulse 44; Resp 16; Temp 97.4(O); Pulse Ox 98% on R/A; Pain 0/10; ml6 13:06 BP 132 / 71 (auto/); ml6 13:06 Pulse 44 MON; Resp 16; Pulse Ox 93% on R/A; ml6 13:21 BP 130 / 68 (auto/); ml6 13:21 Pulse 42 MON; Resp 16; Pulse Ox 93% on R/A; ml6 13:36 BP 136 / 74 (auto/); ml6 13:36 Pulse 42 MON; Resp 16; Pulse Ox 93% on R/A; ml6 13:51 BP 134 / 71 (auto/); ml6 13:51 Pulse 40 MON; Resp 16; Pulse Ox 97% on R/A; Pain 0/10; ml6 14:06 BP 149 / 83 (auto/); ml6 14:06 Pulse 50 MON; Resp 16; Pulse Ox 95% on R/A; Pain 0/10; ml6 14:21 BP 163 / 64 (auto/); ml6 14:21 Pulse 44 MON; Resp 16; Pulse Ox 94% on R/A; Pain 0/10; ml6 11:08 Body Mass Index 32.19 (98.88 kg, 175.26 cm) dd6 Vitals: 11:08 Log In Time: July 19, 2016 at 11:06. dd6 11:09 RN notified that patient meets Red Flag criteria. dd6 ED Course: 11:08 Patient visited by Pillo Herrera PCA. dd6 11:08 Zhane Dawkins is Private Physician. dd6 11:08 Patient moved to Waiting dd6 11:10 Patient moved to 12 dd6 11:10 The patient / caregiver is instructed regarding the plan of care and ED course. Cardiac ml6 monitor on. Pulse ox on. NIBP on. 11:10 Inserted peripheral IV: 16gauge IV in right antecubital area. No procedures done that ml6 require assistance. Labs drawn. (by ED staff). 11:20 [facility] jo4 11:20 Summer Robb MD is Attending Physician. jo4 11:23 Triage Initiated ml6 11:29 EKG done. (by ED staff). Reviewed by Mel Luna DO. jb5 11:30 Patient visited by Sugar Leal PCA. jb5 11:43 Patient visited by Mel Luna DO. jo4 11:43 Patient visited by Mel Luna DO. jo4 12:15 portable chest Returned. EDMS 12:21 Patient visited by Aleks Medrano RN. ml6 13:08 Patient visited by Aleks Medrano RN. ml6 13:24 [facility] Payment Agreement was scanned into Bilna and attached to record. mm15 14:07 Patient visited by Aleks Medrano RN. ml6 14:13 EKG done. (by ED staff). Reviewed by Mel Luna DO. nb2 14:16 Patient visited by Stacey Smith. nb2 14:50 Zhane Dawkins is Referral Physician. jo4 15:00 Discontinued IV bleeding controlled, pressure dressing applied, No redness/swelling at ml6 site. 19:42 EKG-ADULT Returned. EDMS 07/20 08:12 ECG/EKG was scanned into Bilna and attached to record. gb 09:25 T-Sheet-- Draft Copy was scanned into Bilna and attached to record. [facility] Order Results: Lab Order: Basic Metabolic Profile; SPEC'M 07/19/16 11:20 Test: GLUCOSE, FASTING; Value: 135; Range: 83-110; Abnormal: Above high normal; Units: MG/DL; Status: F Test: BLOOD UREA NITROGEN; Value: 20; Range: 7-18; Abnormal: Above high normal; Units: MG/DL; Status: F Test: CREATININE FOR GFR; Value: 1.25; Range: 0.70-1.30; Units: MG/DL; Status: F Test: GLOMERULAR FILTRATION RATE; Value: 59.3; Range: >42; Status: F Test: SODIUM LEVEL; Value: 142; Range: 136-145; Units: MEQ/L; Status: F Test: POTASSIUM SERUM; Value: 4.1; Range: 3.5-5.1; Units: MEQ/L; Status: F Test: CHLORIDE LEVEL; Value: 108; Range: 98-107; Abnormal: Above high normal; Units: MEQ/L; Status: F Test: CARBON DIOXIDE LEVEL; Value: 27; Range: 21-32; Units: MEQ/L; Status: F Test: ANION GAP; Value: 7; Range: 8-16; Abnormal: Below low normal; Units: MEQ/L; Status: F Test: CALCIUM LEVEL; Value: 8.5; Range: 8.8-10.2; Abnormal: Below low normal; Units: MG/DL; Status: F Test Note: ; Units are mL/min/1.73 m2 Chronic Kidney Disease Staging per NKF: Stage I & II GFR >=60 Normal to Mildly Decreased Stage III GFR 30-59 Moderately Decreased Stage IV GFR 15-29 Severely Decreased Stage V GFR <15 Very Little GFR Left ESRD GFR <15 on TOOL OR DIE DRAWING CHECKER Lab Order: CBC with Diff; SPEC'M 07/19/16 11:20 Test: WHITE BLOOD COUNT; Value: 7.2; Range: 4.0-10.0; Units: K/mm3; Status: F Test: RED BLOOD COUNT; Value: 5.29; Range: 4.30-6.10; Units: M/mm3; Status: F Test: HEMOGLOBIN; Value: 15.2; Range: 14.0-18.0; Units: g/dl; Status: F Test: HEMATOCRIT; Value: 46.4; Range: 42.0-52.0; Units: %; Status: F Test: MEAN CORPUSCULAR VOLUME; Value: 87.7; Range: 80.0-96.0; Units: fl; Status: F Test: MEAN CORPUSCULAR HEMOGLOBIN; Value: 28.8; Range: 27.0-33.0; Units: pg; Status: F Test: MEAN CORPUSCULAR HGB CONC; Value: 32.8; Range: 32.0-36.5; Units: g/dl; Status: F Test: RED CELL DISTRIBUTION WIDTH; Value: 13.8; Range: 11.5-14.5; Units: %; Status: F Test: PLATELET COUNT, AUTOMATED; Value: 178; Range: 150-450; Units: k/mm3; Status: F Test: NEUTROPHILS %; Value: 48.4; Range: 36.0-66.0; Units: %; Status: F Test: LYMPH %; Value: 38.8; Range: 24.0-44.0; Units: %; Status: F Test: MONO %; Value: 6.9; Range: 0.0-5.0; Abnormal: Above high normal; Units: %; Status: F Test: EOS %; Value: 2.2; Range: 0.0-3.0; Units: %; Status: F Test: BASO %; Value: 1.3; Range: 0.0-1.0; Abnormal: Above high normal; Units: %; Status: F Test: LARGE UNSTAINED CELL %; Value: 2.4; Range: 0.0-4.0; Units: %; Status: F Test: NEUTROPHILS #; Value: 3.5; Range: 1.8-7.7; Units: K/mm3; Status: F Test: LYMPH #; Value: 3.0; Range: 1.5-4.5; Units: K/mm3; Status: F Test: MONO #; Value: 0.5; Range: 0.0-0.8; Units: K/mm3; Status: F Test: EOS #; Value: 0.2; Range: 0.0-0.50; Units: K/mm3; Status: F Test: BASO #; Value: 0.1; Range: 0.0-0.2; Units: K/mm3; Status: F Test: LARGE UNSTAINED CELL #; Value: 0.2; Range: 0.0-0.4; Units: K/mm3; Status: F Lab Order: Cardiac Injury Profile; SPEC'M 07/19/16 11:20 Test: CPK CREATINE PHOSPHOKINASE; Value: 98; Range: 39-308; Units: U/L; Status: F Test: CK-MB VALUE MASS; Value: 1.8; Range: 0.0-3.6; Units: NG/ML; Status: F Test: MB/CK RELATIVE INDEX; Value: 1.83; Range: < OR =4; Status: F Test Note: ; DIAGNOSIS CRITERIA MMB ng/ml Relative Index (RI) NON-AMI < or = 5 N/A PHIPPS ZONE > 5 < or = 4 AMI > 5 > 4 Lab Order: Troponin; SPEC'M 07/19/16 11:20 Test: TROPONIN I; Value: < 0.02; Range: < 0.10; Units: NG/ML; Status: F Test Note: ; Troponin I Reference Interval for Siem[employer] [place] LOCI: 99th Percentile= 0.00-0.045 ng/ml Risk Stratification: <= 0.10 ng/ml Decreased Risk for Adverse Clinical Events. 0.10-1.50 ng/ml Increased Risk for Adverse Clinical Events. Evaluation of additional criterion and/or repeat testing in 2-6 hours is suggested to rule out myocardial damage. >= 1.50 ng/ml Indicative of Myocardial Injury. Lab Order: CARDIAC MARKER PANEL; SPEC'M 07/19/16 14:12 Test: CPK CREATINE PHOSPHOKINASE; Value: 91; Range: 39-308; Units: U/L; Status: F Test: CK-MB VALUE MASS; Value: 1.8; Range: 0.0-3.6; Units: NG/ML; Status: F Test: MB/CK RELATIVE INDEX; Value: 1.97; Range: < OR =4; Status: F Test: TROPONIN I; Value: < 0.02; Range: < 0.10; Units: NG/ML; Status: F Test Note: ; DIAGNOSIS CRITERIA MMB ng/ml Relative Index (RI) NON-AMI < or = 5 N/A PHIPPS ZONE > 5 < or = 4 AMI > 5 > 4 Radiology Order: EKG-ADULT Test: EKG-ADULT REASON FOR EXAMINATION: Chest Pain; Stationary ECG Study; [facility] - ED; ; Test Date: 2016-07-19; Pat Name: NEFTALY LOPEZ Department:; Room: -; 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; : 1935 Requested By: Summer Robb; Order Number: [id number] Reading MD: Summer Robb; Measurements; Intervals [place]; Rate: 46 P: 30; VT: 230 QRS: -21; QRSD: 86 T: 101; QT: 425; QTc: 372; Interpretive Statements; SINUS BRADYCARDIA WITH FIRST DEGREE AV BLOCK; BORDERLINE LEFT AXIS DEVIATION; NONSPECIFIC T-WAVE ABNORMALITY; PRWP; SIMILAR 04/12/15; Electronically Signed On 07-19-2016 19:29:37 EST by Summer Robb; Radiology Order: portable chest Test: portable chest REASON FOR EXAMINATION: Chest Pain; CHEST X-RAY: Portable upright semi-erect view.; ; HISTORY: Chest pain.; ; Comparison chest x-ray April 12, 2015.; ; FINDINGS: There are old granulomatous calcifications scattered about the lung; watson bilaterally. EKG monitoring electrodes overlie the chest. Heart is not; felt to be enlarged. The aorta is somewhat tortuous. Pulmonary vasculature is; not increased. No infiltrate is seen.; ; IMPRESSION: No active disease. 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 jo4 15:01 Discharge Assessment: patient administered narcotics - no. The following High Risk ml6 Discharge criteria are identified: None. Discharged to home ambulatory, with significant other. Condition: stable. Discharge instructions given to patient, Instructed on discharge instructions, Demonstrated understanding of instructions, medications, Pt was receptive of discharge instructions/ teaching. No special radiology studies were completed. Property sent home with patient. :Personal belongings accompany Pt. 15:01 Patient left the ED. ml6 Signatures: Dispatcher [employer] EDBrisa Roberson, Reg Reg Sugar Ball, OPHTHALMOLOGY SURGICAL TECHNICIAN OPHTHALMOLOGY SURGICAL TECHNICIAN jb5 Desormeau, Pillo, OPHTHALMOLOGY SURGICAL TECHNICIAN OPHTHALMOLOGY SURGICAL TECHNICIAN dd6 Aleks Medrano, RN RN ml6 Lamar Ol[place]stead mm15 Mel Luna DO DO jo4 Hoffert, Sarah seh Baart, Nicole nb2 Corrections: (The following items were deleted from the chart) 11:30 11:10 Labs drawn. (by ED staff). EKG done. (by ED staff). Reviewed by Summer Robb MD ml6 Chart Complete MTDD
== END 2016-07-19 15:01 | disposition home or self-care (01) ==
LOC: M ED 11:07
DX: S29.011A Strain of muscle and tendon of front wall of thorax, initial encounter (principal); X58.XXXA Exposure to other specified factors, initial encounter; Y92.9 Unspecified place or not applicable; Y93.9 Activity, unspecified; Y99.9 Unspecified external cause status; R94.31 Abnormal electrocardiogram [ECG] [EKG]; I25.2 Old myocardial infarction; Z85.038 Personal history of other malignant neoplasm of large intestine; E78.00 Pure hypercholesterolemia, unspecified; Z95.5 Presence of coronary angioplasty implant and graft; Z90.49 Acquired absence of other specified parts of digestive tract; Z96.612 Presence of left artificial shoulder joint; Z89.011 Acquired absence of right thumb; Z79.82 Long term (current) use of aspirin; Z79.899 Other long term (current) drug therapy

== ENCOUNTER → 2016-11-21 | Outpatient (CLI) | payer OTHER ==
[~2016-11-21] VITALS: Ht 172.7 cm; Wt 95.3 kg
[~2016-11-21] MED LIST changes: -COLA100C PO; +COLA100C3 PO; +INCR1INH INH; +LOSA25TA8 PO; +NS 1,000 ML IV ONE; +PROPOFOL 200 MG/20 ML VIAL As Ordered ONE
--- NOTE | 2016-11-21 09:18 | ROOR ---
Patient Name: Celso Armando Procedure Date: 11/21/2016 8:45 AM Date of : 1935 Age: 80 Room: [facility] Gender: Male Note Status: Finalized Procedure: Colonoscopy Indications: High risk colon cancer surveillance: Personal history of colonic polyps, High risk colon cancer surveillance: Personal history of colon cancer Providers: Saleem Vazquez Jr, MD Referring MD: Zhane Dawkins MD Requesting Provider: Medicines: Propofol per Anesthesia Complications: No immediate complications. Procedure: Pre-Anesthesia Assessment: - Prior to the procedure, a History and Physical was performed, and patient medications and allergies were reviewed. The patient is competent. The risks and benefits of the procedure and the sedation options and risks were discussed with the patient. All questions were answered and informed consent was obtained. Patient identification and proposed procedure were verified by the physician and the nurse in the pre-procedure area and in the procedure room. Mental Status Examination: alert and oriented. Airway Examination: normal oropharyngeal airway and neck mobility. Respiratory Examination: clear to auscultation. CV Examination: normal. ASA Grade Assessment: II - A patient with mild systemic disease. After reviewing the risks and benefits, the patient was deemed in satisfactory condition to undergo the procedure. The anesthesia plan was to use moderate sedation / analgesia (conscious sedation). Immediately prior to administration of medications, the patient was re-assessed for adequacy to receive sedatives. The heart rate, respiratory rate, oxygen saturations, blood pressure, adequacy of pulmonary ventilation, and response to care were monitored throughout the procedure. The physical status of the patient was re-assessed after the procedure. The Colonoscope was introduced through the anus and advanced to the cecum, identified by appendiceal orifice and ileocecal valve. The colonoscopy was performed without difficulty. The patient tolerated the procedure well. The quality of the bowel preparation was adequate and fair. Findings: The perianal and digital rectal examinations were normal. Pertinent negatives include normal sphincter tone, no palpable rectal lesions and no anal lesion or abnormality was detected. The rectum, recto-sigmoid colon, cecum, appendiceal orifice and ileocecal valve appeared normal. Multiple polyps were found in the sigmoid colon, descending colon and transverse colon. The polyps were medium in size. These polyps were removed with a hot snare. Resection was complete, but the polyp tissue was only partially retrieved. Impression: - Preparation of the colon was fair. - The rectum, recto-sigmoid colon, cecum, appendiceal orifice and ileocecal valve are normal. - Multiple medium polyps in the sigmoid colon, in the descending colon and in the transverse colon, removed with a hot snare. Complete resection. Partial retrieval. Recommendation: - Repeat colonoscopy in 2 years for surveillance. - Discharge patient to home (ambulatory). Saleem Vazquez MD Saleem Vazquez Jr, MD 11/21/2016 9:17:32 AM This report has been signed electronically. Number of Addenda: 0 Note Initiated On: 11/21/2016 8:45 AM Estimated Blood Loss: Estimated blood loss: none.
[2016-11-21 09:40] VITALS: BP 126/72
== END | disposition home or self-care (01) ==
LOC: M OPP 07:49
PROVIDERS: ATTEND Surgery
DX: Z12.11 Encounter for screening for malignant neoplasm of colon (principal); D12.5 Benign neoplasm of sigmoid colon; D12.4 Benign neoplasm of descending colon; D12.3 Benign neoplasm of transverse colon; Z86.010 Personal history of colon polyps; Z85.038 Personal history of other malignant neoplasm of large intestine; I25.10 Atherosclerotic heart disease of native coronary artery without angina pectoris; Z95.5 Presence of coronary angioplasty implant and graft; I25.2 Old myocardial infarction; I10 Essential (primary) hypertension; E78.5 Hyperlipidemia, unspecified; E66.9 Obesity, unspecified; Z92.21 Personal history of antineoplastic chemotherapy; K57.92 Diverticulitis of intestine, part unspecified, without perforation or abscess without bleeding; M19.90 Unspecified osteoarthritis, unspecified site; M54.9 Dorsalgia, unspecified; F32.9 Major depressive disorder, single episode, unspecified; J44.9 Chronic obstructive pulmonary disease, unspecified; Z87.891 Personal history of nicotine dependence; Z79.82 Long term (current) use of aspirin; Z79.899 Other long term (current) drug therapy; Z80.9 Family history of malignant neoplasm, unspecified

== ENCOUNTER → 2017-01-17 | Outpatient (REF) | payer OTHER ==
[~2017-01-17] MED LIST changes: -COLA100C3 PO; +COLA100C5 PO; -NS 1,000 ML IV ONE; -PROPOFOL 200 MG/20 ML VIAL As Ordered ONE
[2017-01-17 17:23] LABS: CREATININE FOR GFR 1.37 MG/DL (0.70-1.30); GLOMERULAR FILTRATION RATE 53.2 (>35)
== END ==
LOC: M LABDRAW1 15:56
PROVIDERS: ATTEND Family Medicine
DX: Z01.818 Encounter for other preprocedural examination (principal)

== ENCOUNTER → 2017-04-23 | Outpatient (REF) | payer OTHER ==
[2017-04-23 14:13] LABS: BASO % 0.3 % (0.0-1.0); EOS # 0.1 10^3/uL (0.0-0.50); EOS % 1.3 % (0.0-3.0); IMMATURE GRANULOCYTE % 0.6 % (0-0); LYMPH # 2.8 10^3/uL (1.5-4.5); LYMPH % 32.6 % (24.0-44.0); MEAN CORPUSCULAR HEMOGLOBIN 28.5 pg (27.0-33.0); MEAN CORPUSCULAR HGB CONC 31.6 g/dl (32.0-36.5); MEAN CORPUSCULAR VOLUME 90.4 fl (80.0-96.0); MONO # 0.7 10^3/uL (0.0-0.8); NEUTROPHILS # 4.9 10^3/uL (1.8-7.7); NEUTROPHILS % 57.2 % (36.0-66.0); PLATELET COUNT, AUTOMATED 218 10^3/uL (150-450); RED CELL DISTRIBUTION WIDTH 13.1 % (11.5-14.5); WHITE BLOOD COUNT 8.6 10^3/uL (4.0-10.0)
[2017-04-23 14:37] LABS: ALBUMIN 3.6 GM/DL (3.2-5.2); ALBUMIN/GLOBULIN RATIO 0.97 (1.00-1.93); ALKALINE PHOSPHATASE 113 U/L (45-117); ALT/SGPT 36 U/L (12-78); ANION GAP 5 MEQ/L (8-16); AST/SGOT 26 U/L (7-37); BILIRUBIN,TOTAL 0.7 MG/DL (0.2-1.0); BLOOD UREA NITROGEN 22 MG/DL (7-18); CARBON DIOXIDE LEVEL 30 MEQ/L (21-32); CHLORIDE LEVEL 106 MEQ/L (98-107); CHOLESTEROL LEVEL 166 MG/DL (<200); CREATININE FOR GFR 1.06 MG/DL (0.70-1.30); GLOMERULAR FILTRATION RATE > 60.0 (>35); GLUCOSE, FASTING 103 MG/DL (83-110); POTASSIUM SERUM 5.1 MEQ/L (3.5-5.1); SODIUM LEVEL 141 MEQ/L (136-145); TOTAL PROTEIN 7.3 GM/DL (6.4-8.2); TRIGLYCERIDES LEVEL 93 MG/DL (<150)
== END ==
LOC: M LABDRAW1 10:22
PROVIDERS: ATTEND Family Medicine
DX: I25.5 Ischemic cardiomyopathy (principal)

== ENCOUNTER 2017-06-15 12:42 | Emergency (ER) | payer OTHER ==
[~2017-06-15] VITALS: Ht 175.3 cm; Wt 100.0 kg
[2017-06-15 12:42] VITALS: BP 137/67
[2017-06-15] MEDS ORDERED: ADV250INH (12:51)
--- NOTE | 2017-06-15 14:46 | REP ---
Clinical: Cough. Technique: PA and lateral. Comparison: 07/19/2016. Findings: Mediastinum and cardiac silhouette are stable with mild cardiomegaly again appreciated. Lung watson demonstrate chronic interstitial changes along with scattered calcified granuloma similar to prior examination. No obvious acute consolidation, effusion, or pneumothorax. However, trace basilar atelectasis cannot be excluded. No pneumothorax. Skeletal structures intact. Impression: Chronic stable changes. Cannot exclude trace basilar atelectasis. Signed by Kvng Covarrubias MD 06/15/2017 02:37 P
[2017-06-15] MEDS ORDERED: VENTAER IN (15:14)
[2017-06-15] MEDS ORDERED: PRED10TA2 PO (15:14)
[2017-06-15] MEDS ORDERED: ZITHTAB PO (15:14)
[2017-06-15] MEDS ORDERED: predniSONE 20 MG TAB PO ONE (15:15)
[2017-06-15] MEDS ORDERED: AZITHROMYCIN 250 MG TAB PO ONE (15:15)
== END 2017-06-15 15:35 | disposition home or self-care (01) ==
LOC: M ED 12:42
DX: J20.9 Acute bronchitis, unspecified (principal); J98.11 Atelectasis; I25.10 Atherosclerotic heart disease of native coronary artery without angina pectoris; I10 Essential (primary) hypertension; E78.4 Other hyperlipidemia; I25.2 Old myocardial infarction; Z87.891 Personal history of nicotine dependence

== ENCOUNTER → 2018-04-16 | Outpatient (REF) | payer OTHER | LOC: M LAB REF 17:09 | DX: L72.3 Sebaceous cyst (principal) | CPT/HCPCS: 87186 ==

== ENCOUNTER → 2018-05-06 | Outpatient (REF) | payer OTHER ==
[2018-05-06 13:16] LABS: ALBUMIN 3.3 GM/DL (3.2-5.2); ALBUMIN/GLOBULIN RATIO 0.97 (1.00-1.93); ALKALINE PHOSPHATASE 108 U/L (45-117); ALT/SGPT 30 U/L (12-78); ANION GAP 6 MEQ/L (8-16); AST/SGOT 25 U/L (7-37); BILIRUBIN,TOTAL 0.7 MG/DL (0.2-1.0); BLOOD UREA NITROGEN 19 MG/DL (7-18); CALCIUM LEVEL 8.3 MG/DL (8.8-10.2); CARBON DIOXIDE LEVEL 29 MEQ/L (21-32); CHLORIDE LEVEL 108 MEQ/L (98-107); CHOLESTEROL LEVEL 136 MG/DL (<200); CHOLESTEROL RISK RATIO 2.385 (<5); CREATININE FOR GFR 1.14 MG/DL (0.70-1.30); GLOMERULAR FILTRATION RATE > 60.0 (>35); GLUCOSE, FASTING 92 MG/DL (70-100); HDL CHOLESTEROL 57 MG/DL (>40); LDL CHOLESTEROL 62 MG/DL (<100); NON-HDL-C 79 MG/DL; SODIUM LEVEL 143 MEQ/L (136-145); TOTAL PROTEIN 6.7 GM/DL (6.4-8.2); TRIGLYCERIDES LEVEL 83 MG/DL (<150)
[2018-05-06 13:21] LABS: BASO % 0.4 % (0.0-1.0); EOS # 0.1 10^3/uL (0.0-0.50); EOS % 1.5 % (0.0-3.0); HEMATOCRIT 47.9 % (42.0-52.0); HEMOGLOBIN 15.1 g/dl (13.5-17.5); IMMATURE GRANULOCYTE % 0.7 % (0-3.0); LYMPH # 2.7 10^3/uL (1.5-4.5); LYMPH % 34.1 % (24.0-44.0); MEAN CORPUSCULAR HEMOGLOBIN 28.8 pg (27.0-33.0); MEAN CORPUSCULAR HGB CONC 31.5 g/dl (32.0-36.5); MEAN CORPUSCULAR VOLUME 91.4 fl (80.0-96.0); MONO # 0.7 10^3/uL (0.0-0.8); MONO % 8.3 % (0.0-5.0); NEUTROPHILS # 4.4 10^3/uL (1.8-7.7); PLATELET COUNT, AUTOMATED 191 10^3/uL (150-450); RED BLOOD COUNT 5.24 10^6/uL (4.30-6.10); RED CELL DISTRIBUTION WIDTH 12.9 % (11.5-14.5)
== END ==
LOC: M LABDRAW1 12:29
DX: I50.32 Chronic diastolic (congestive) heart failure (principal)
CPT/HCPCS: 80053

== ENCOUNTER 2018-06-17 11:01 | Emergency (ER) | payer MEDICARE, OTHER ==
[~2018-06-17] VITALS: Ht 175.3 cm; Wt 102.3 kg
[~2018-06-17 11:01] MED LIST changes: +ADV250INH; +LOSA25TA33 PO; -LOSA25TA8 PO; +PRED10TA2 PO; +VENTAER IN; +ZITHTAB PO
[2018-06-17] MEDS ORDERED: ATOR80TA59 (11:10)
[2018-06-17] MEDS ORDERED: AUGMENTIN 875 MG TAB PO ONE (12:00)
[2018-06-17] MEDS ORDERED: ADACEL/BOOSTRIX VACCINE (DIPHTH/PERTUSS/ACELL/TETANUS)0.5ML SYR (90715) IM ONE (12:00)
[2018-06-17] MEDS ORDERED: AUGM875T28 PO (12:32)
[2018-06-17 12:52] VITALS: BP 172/78
== END 2018-06-17 12:54 | disposition home or self-care (01) ==
LOC: M ED 11:01
DX: S61.402A Unspecified open wound of left hand, initial encounter (principal); W54.0XXA Bitten by dog, initial encounter; Y92.018 Other place in single-family (private) house as the place of occurrence of the external cause

== ENCOUNTER 2018-11-05 06:39 | Day surgery (SDC) | payer MEDICARE ==
[~2018-11-05] VITALS: Ht 176.5 cm; Wt 101.2 kg
[~2018-11-05 06:39] MED LIST changes: -ASPI81CH PO; +ASPI81CH49 PO; +ATOR80TA59; +AUGM875T28 PO; +HYDR-3715 PO; +LOSA25TA14 PO; -LOSA25TA33 PO; -NORCOTAB PO
[2018-11-05] MEDS ORDERED: NS 1,000 ML IV ONE (07:00)
[2018-11-05] MEDS ORDERED: PROPOFOL 200 MG/20 ML VIAL As Ordered ONE ×2 (07:21→08:07)
[2018-11-05] MEDS ORDERED: LIDOCAINE 2% INJ 100 MG/5 ML SDV (FOR ANES.) As Ordered ONE (07:21)
--- NOTE | 2018-11-05 08:17 | ROOR ---
Patient Name: Celso Armando Procedure Date: 11/05/2018 8:03 AM Date of : 1935 Age: 82 Room: [facility] Gender: Male Note Status: Finalized Procedure: Colonoscopy Indications: High risk colon cancer surveillance: Personal history of colon cancer Providers: Saleem Vazquez Jr, MD Referring MD: Zhane Dawkins MD Requesting Provider: Medicines: Propofol per Anesthesia Complications: No immediate complications. Procedure: Pre-Anesthesia Assessment: - Prior to the procedure, a History and Physical was performed, and patient medications and allergies were reviewed. The patient is competent. The risks and benefits of the procedure and the sedation options and risks were discussed with the patient. All questions were answered and informed consent was obtained. Patient identification and proposed procedure were verified by the physician and the nurse in the pre-procedure area and in the procedure room. Mental Status Examination: alert and oriented. Airway Examination: normal oropharyngeal airway and neck mobility. Respiratory Examination: clear to auscultation. CV Examination: normal. ASA Grade Assessment: II - A patient with mild systemic disease. After reviewing the risks and benefits, the patient was deemed in satisfactory condition to undergo the procedure. The anesthesia plan was to use moderate sedation / analgesia (conscious sedation). Immediately prior to administration of medications, the patient was re-assessed for adequacy to receive sedatives. The heart rate, respiratory rate, oxygen saturations, blood pressure, adequacy of pulmonary ventilation, and response to care were monitored throughout the procedure. The physical status of the patient was re-assessed after the procedure. The Colonoscope was introduced through the anus and advanced to the cecum, identified by appendiceal orifice and ileocecal valve. The colonoscopy was performed without difficulty. The patient tolerated the procedure well. The quality of the bowel preparation was adequate. Findings: The rectum, descending colon, transverse colon, ascending colon, cecum, appendiceal orifice and ileocecal valve appeared normal. A few small and large-mouthed diverticula were found in the sigmoid colon. Impression: - No specimens collected. Recommendation: - Discharge patient to home (ambulatory). - Repeat colonoscopy in 5 years for surveillance. Saleem Vazquez MD Saleem Vazquez Jr, MD 11/05/2018 8:16:52 AM Electronically signed by Saleem Vazquez Jr, MD Number of Addenda: 0 Note Initiated On: 11/05/2018 8:03 AM Estimated Blood Loss: Estimated blood loss: none. Estimated blood loss: none.
[2018-11-05 08:40] VITALS: BP 116/74
== END 2018-11-05 08:49 | disposition home or self-care (01) ==
LOC: M OPP 06:39
PROVIDERS: ATTEND Surgery
DX: Z85.038 Personal history of other malignant neoplasm of large intestine (principal); Z86.010 Personal history of colon polyps; K57.30 Diverticulosis of large intestine without perforation or abscess without bleeding; Z79.82 Long term (current) use of aspirin; Z79.899 Other long term (current) drug therapy; Z87.891 Personal history of nicotine dependence

== ENCOUNTER → 2018-11-07 | Outpatient (CLI) | payer MEDICARE ==
--- NOTE | 2018-11-07 12:02 | REP ---
REASON: Rib pain after trauma particularly posteriorly. Accompanying frontal view of the chest has been compared to the prior examination of 02/09/2018. The accompanying frontal view of the chest is unchanged from the prior exam. Four views of the right ribs show no acute fracture or destructive osseous lesion. Chronic changes again seen involving the shoulders status quo. Chronic changes are again seen involving the spine status quo. IMPRESSION: No acute fracture. Electronically Signed by Nate Hernandez DO 11/07/2018 12:13 P
--- NOTE | 2018-11-07 12:21 | REP ---
HISTORY: Low back pain. COMPARISON: None. 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 There is disc space narrowing at every level which is advanced and particularly L3-4 and L4-5 with posterior disc space narrowing at all other levels. Vertebral body height is within normal limits. There is either slight retrolisthesis or posterior osteophytic ridging involving the inferior endplate of L3. The pedicles appear to be intact bilaterally. IMPRESSION: Advanced chronic changes as described above. Electronically Signed by Nate Hernandez DO 11/07/2018 12:26 P
== END ==
LOC: M WUC 11:10
PROVIDERS: ATTEND Physician Assistant
DX: M51.36 Other intervertebral disc degeneration, lumbar region (principal); M25.78 Osteophyte, vertebrae; S20.229A Contusion of unspecified back wall of thorax, initial encounter; Y92.9 Unspecified place or not applicable; Y93.9 Activity, unspecified

== ENCOUNTER 2020-08-31 11:12 | Emergency (ER) | payer MEDICARE, OTHER ==
[~2020-08-31] VITALS: Ht 175.3 cm; Wt 103.3 kg
[~2020-08-31 11:12] MED LIST changes: +ATOR80TA59 PO; -LISI-538 PO; +LISI20TA33 PO
[2020-08-31] MEDS ORDERED: PRED20TA PO (11:26)
[2020-08-31] MEDS ORDERED: AZIT-12 PO (11:26)
[2020-08-31] MEDS ORDERED: SPIR1CAP INH (11:26)
[2020-08-31 14:15] VITALS: BP 130/64
== END 2020-08-31 14:20 | disposition home health service (06) ==
LOC: M ED 11:12
DX: U07.1 COVID-19 (principal); R05 Cough; I25.10 Atherosclerotic heart disease of native coronary artery without angina pectoris; E78.5 Hyperlipidemia, unspecified; I10 Essential (primary) hypertension; J44.9 Chronic obstructive pulmonary disease, unspecified; Z79.899 Other long term (current) drug therapy

== ENCOUNTER 2020-08-31 14:51 | Outpatient (CLI) | payer MEDICARE, OTHER ==
[2020-08-31 14:51] VITALS: BP 115/54
[~2020-08-31 14:51] MED LIST changes: +ALBUTEROL 90 MCG/ACT 8GM HFA INHALER INH PRN; +ALBUTEROL SULFATE 2.5 MG/0.5 ML INH NEB SOLN INH PRN; +AZIT-12 PO; +EPINEPHrine INJ 1 MG/ML 1ML AMP IM PRN; +NS 1,000 ML IV SCH; +PRED20TA PO; +SPIR1CAP INH; +diphenhydrAMINE 50MG/ML VIAL (J1200) IV PRN; +methylPREDNISolone 125MG 2ML VIAL IV PRN
[2020-08-31] MEDS ORDERED: BAMLANIVIMAB 700 MG in NS 250 ML IV ONE (15:00)
[2020-08-31 16:24] VITALS: BP 124/61
[2020-08-31 17:00] VITALS: BP 123/63
[2020-08-31 17:30] VITALS: BP 135/64
[2020-08-31 18:30] VITALS: BP 134/94
== END 2020-08-31 18:40 | disposition home or self-care (01) ==
LOC: M 4MAIN 14:51 → M OPCLI4PR 14:51
PROVIDERS: ATTEND Internal Medicine
DX: U07.1 COVID-19 (principal); R05 Cough; I25.10 Atherosclerotic heart disease of native coronary artery without angina pectoris; E78.5 Hyperlipidemia, unspecified; I10 Essential (primary) hypertension; J44.9 Chronic obstructive pulmonary disease, unspecified; Z79.899 Other long term (current) drug therapy
CPT/HCPCS: 99281; M0239

== ENCOUNTER → 2020-11-28 | Outpatient (CLI) | payer OTHER ==
[~2020-11-28] MED LIST changes: -ALBUTEROL 90 MCG/ACT 8GM HFA INHALER INH PRN; -ALBUTEROL SULFATE 2.5 MG/0.5 ML INH NEB SOLN INH PRN; -EPINEPHrine INJ 1 MG/ML 1ML AMP IM PRN; -NS 1,000 ML IV SCH; -diphenhydrAMINE 50MG/ML VIAL (J1200) IV PRN; -methylPREDNISolone 125MG 2ML VIAL IV PRN
--- NOTE | 2020-11-29 07:32 | REP ---
INDICATION: UNILAT PRIMARY OSTEROARTHRITIS LT KNEE. COMPARISON: None. TECHNIQUE: AP, lateral, bilateral oblique, tunnel and sunrise views of the left knee FINDINGS: Moderate osteoarthritic degenerative changes are appreciated. Findings include increased sclerosis to the tibial plateau and posterior patella contour with associated medial and patellofemoral joint space narrowing. Chondrocalcinosis and calcifications adjacent to the tibial spines suggested as well as cortical irregularity and subtle osteophytes along the margins of the femur and patella. No acute fracture or dislocation. No effusion. IMPRESSION: Moderate tricompartmental osteoarthritic degenerative changes. <Electronically signed by Kvng Covarrubias > 11/29/20 0791
== END ==
LOC: M SOG 11:28
PROVIDERS: ATTEND Orthopaedic Surgery Sports Medicine
DX: M17.12 Unilateral primary osteoarthritis, left knee (principal)

== ENCOUNTER → 2021-08-01 | Outpatient (CLI) | payer OTHER ==
[~2021-08-01] MED LIST changes: +LOSA25TA13 PO; -LOSA25TA14 PO
[2021-08-01 11:20] LABS: HEMATOCRIT 43.3 % (42.0-52.0); HEMOGLOBIN 13.8 g/dl (13.5-17.5); MEAN CORPUSCULAR HEMOGLOBIN 29.1 pg (27.0-33.0); MEAN CORPUSCULAR HGB CONC 31.9 g/dl (32.0-36.5); MEAN CORPUSCULAR VOLUME 91.4 fl (80.0-96.0); PLATELET COUNT, AUTOMATED 178 10^3/uL (150-450); RED BLOOD COUNT 4.74 10^6/uL (4.30-6.10); WHITE BLOOD COUNT 8.5 10^3/uL (4.0-10.0)
[2021-08-01 11:30] LABS: INR 0.95; PROTHROMBIN TIME 13.1 SECONDS (12.7-14.5)
[2021-08-01 11:39] LABS: ERYTHROCYTE SEDIMENTATION RATE 14 mm/hr (0-20)
[2021-08-01 12:27] LABS: ALBUMIN 3.2 GM/DL (3.2-5.2); ALT/SGPT 22 U/L (12-78); BILIRUBIN,TOTAL 0.6 MG/DL (0.2-1.0); BLOOD UREA NITROGEN 24 MG/DL (7-18); CALCIUM LEVEL 8.6 MG/DL (8.8-10.2); CARBON DIOXIDE LEVEL 29 MEQ/L (21-32); CHLORIDE LEVEL 111 MEQ/L (98-107); GLOMERULAR FILTRATION RATE > 60.0 (>35); GLUCOSE, FASTING 80 MG/DL (70-100); POTASSIUM SERUM 4.6 MEQ/L (3.5-5.1); SODIUM LEVEL 145 MEQ/L (136-145); TOTAL PROTEIN 6.3 GM/DL (6.4-8.2)
[2021-08-02 19:11] LABS: CHOLESTEROL LEVEL 138 MG/DL (<200); CHOLESTEROL RISK RATIO 2.509 (<5); HDL CHOLESTEROL 55 MG/DL (>40); LDL CHOLESTEROL 58 MG/DL (<100); NON-HDL-C 83 MG/DL; TRIGLYCERIDES LEVEL 125 MG/DL (<150)
== END ==
LOC: M RAD 10:27
PROVIDERS: ATTEND Family Medicine
DX: Z01.818 Encounter for other preprocedural examination (principal); M17.12 Unilateral primary osteoarthritis, left knee; J44.9 Chronic obstructive pulmonary disease, unspecified; I10 Essential (primary) hypertension; E78.2 Mixed hyperlipidemia

== ENCOUNTER → 2022-04-11 | Outpatient (CLI) | payer OTHER | LOC: M LABSMTC 11:12 | PROVIDERS: ATTEND Anesthesiology | DX: Z01.812 Encounter for preprocedural laboratory examination (principal); Z11.52 Encounter for screening for COVID-19 ==

== ENCOUNTER 2022-04-16 07:28 | Day surgery (SDC) | payer OTHER ==
[~2022-04-16] VITALS: Ht 175.3 cm; Wt 99.1 kg
[~2022-04-16 07:28] MED LIST changes: +BSS IRR 500ML/OMIDRIA 4ML IRR BAG (OR ONLY) As Ordered ONE; +CEFUROXIME 1MG/0.1ML INTRACAMERAL INJ As Ordered ONE; +CYCLOPENTOLATE 1% OPHTH SOLN 2 ML BTL OS SCH; +LIDOCAINE 1% SDV 5ML VIAL As Ordered ONE; +MIDAZOLAM INJ 2MG/2ML VIAL (J2250 PER 1MG) As Ordered ONE; +OFLOXACIN 0.3 % (OCUFLOX) OPTH SOL 5ML OS SCH; +PHENYLEPHRINE 2.5% OPHTH SOL 2ML OS SCH; +PROPARACAINE 0.5% OPHTH SOL 15ML OS ONE; +TROPICAMIDE 1% OPHTH SOLN 2ML OS SCH
[2022-04-16] MEDS ORDERED: TOBRADEX OPHTH SUSP 2.5 ML As Ordered ONE (09:49)
[2022-04-16] MEDS ORDERED: TOBRADEX OPHTH OINT 3.5 GM As Ordered ONE (09:50)
[2022-04-16 10:00] VITALS: BP 161/74
== END 2022-04-16 10:25 | disposition home or self-care (01) ==
LOC: M SDC 07:28
PROVIDERS: ATTEND Ophthalmology
DX: H25.12 Age-related nuclear cataract, left eye (principal); I10 Essential (primary) hypertension; E78.5 Hyperlipidemia, unspecified; K57.92 Diverticulitis of intestine, part unspecified, without perforation or abscess without bleeding; Z86.711 Personal history of pulmonary embolism; F32.A Depression, unspecified; Z87.891 Personal history of nicotine dependence; Z98.61 Coronary angioplasty status; I25.10 Atherosclerotic heart disease of native coronary artery without angina pectoris; I25.2 Old myocardial infarction; J44.9 Chronic obstructive pulmonary disease, unspecified; Z79.82 Long term (current) use of aspirin; Z79.899 Other long term (current) drug therapy; Z79.51 Long term (current) use of inhaled steroids
CPT/HCPCS: 66984; J0697; J1097; J2250; V2632

== ENCOUNTER → 2022-06-06 | Outpatient (CLI) | payer OTHER ==
[~2022-06-06] MED LIST changes: -BSS IRR 500ML/OMIDRIA 4ML IRR BAG (OR ONLY) As Ordered ONE; -CEFUROXIME 1MG/0.1ML INTRACAMERAL INJ As Ordered ONE; -CYCLOPENTOLATE 1% OPHTH SOLN 2 ML BTL OS SCH; -LIDOCAINE 1% SDV 5ML VIAL As Ordered ONE; -MIDAZOLAM INJ 2MG/2ML VIAL (J2250 PER 1MG) As Ordered ONE; -OFLOXACIN 0.3 % (OCUFLOX) OPTH SOL 5ML OS SCH; -PHENYLEPHRINE 2.5% OPHTH SOL 2ML OS SCH; -PROPARACAINE 0.5% OPHTH SOL 15ML OS ONE; -TROPICAMIDE 1% OPHTH SOLN 2ML OS SCH
== END ==
LOC: M LABSMTC 09:18
PROVIDERS: ATTEND Anesthesiology
DX: Z01.812 Encounter for preprocedural laboratory examination (principal); Z11.52 Encounter for screening for COVID-19

== ENCOUNTER 2022-06-11 06:57 | Day surgery (SDC) | payer OTHER ==
[~2022-06-11] VITALS: Ht 175.3 cm; Wt 97.5 kg
[~2022-06-11 06:57] MED LIST changes: +BSS IRR 500ML/OMIDRIA 4ML IRR BAG (OR ONLY) As Ordered ONE; +CEFUROXIME 1MG/0.1ML INTRACAMERAL INJ As Ordered ONE; +CYCLOPENTOLATE 1% OPHTH SOLN 2ML BTL OD SCH; +LIDOCAINE 1% 1ML PF SYRINGE (OR EYE CASES) As Ordered ONE; +OFLOXACIN 0.3 % (OCUFLOX) OPTH SOL 5ML OD SCH; +PHENYLEPHRINE 2.5% OPHTH SOL 2ML OD SCH; +PROPARACAINE 0.5% OPHTH SOL 15ML OD ONE; +TROPICAMIDE 1% OPHTH SOLN 15ML OD SCH
[2022-06-11] MEDS ORDERED: fentaNYL 100 MCG/2 ML INJECTION As Ordered ONE (09:22)
[2022-06-11] MEDS ORDERED: MIDAZOLAM INJ 2MG/2ML VIAL (J2250 PER 1MG) As Ordered ONE (09:22)
[2022-06-11 09:50] VITALS: BP 124/58
== END 2022-06-11 10:05 | disposition home or self-care (01) ==
LOC: M SDC 06:57
PROVIDERS: ATTEND Ophthalmology
DX: H25.11 Age-related nuclear cataract, right eye (principal); Z95.5 Presence of coronary angioplasty implant and graft; I25.10 Atherosclerotic heart disease of native coronary artery without angina pectoris; I25.2 Old myocardial infarction; I10 Essential (primary) hypertension; E78.5 Hyperlipidemia, unspecified; Z79.82 Long term (current) use of aspirin; Z79.899 Other long term (current) drug therapy
CPT/HCPCS: 66984; J0697; J1097; J2250; J3010; V2632

== ENCOUNTER → 2022-07-01 | Outpatient (CLI) | payer MEDICARE, OTHER, SELFPAY ==
[~2022-07-01] MED LIST changes: -BSS IRR 500ML/OMIDRIA 4ML IRR BAG (OR ONLY) As Ordered ONE; -CEFUROXIME 1MG/0.1ML INTRACAMERAL INJ As Ordered ONE; -CYCLOPENTOLATE 1% OPHTH SOLN 2ML BTL OD SCH; -LIDOCAINE 1% 1ML PF SYRINGE (OR EYE CASES) As Ordered ONE; -OFLOXACIN 0.3 % (OCUFLOX) OPTH SOL 5ML OD SCH; -PHENYLEPHRINE 2.5% OPHTH SOL 2ML OD SCH; -PROPARACAINE 0.5% OPHTH SOL 15ML OD ONE; -TROPICAMIDE 1% OPHTH SOLN 15ML OD SCH
[2022-07-01 11:08] LABS: BASO % 0.4 % (0.0-1.0); EOS # 0.1 10^3/uL (0.0-0.5); EOS % 1.3 % (0.0-3.0); HEMATOCRIT 46.1 % (42.0-52.0); HEMOGLOBIN 14.3 g/dl (13.5-17.5); LYMPH # 2.9 10^3/uL (1.5-5.0); LYMPH % 35.6 % (24.0-44.0); MEAN CORPUSCULAR HEMOGLOBIN 28.7 pg (27.0-33.0); MEAN CORPUSCULAR VOLUME 92.6 fl (80.0-96.0); MONO # 0.7 10^3/uL (0.0-0.8); MONO % 8.3 % (2.0-8.0); NEUTROPHILS # 4.4 10^3/uL (1.5-8.5); PLATELET COUNT, AUTOMATED 184 10^3/uL (150-450); RED BLOOD COUNT 4.98 10^6/uL (4.30-6.10); WHITE BLOOD COUNT 8.2 10^3/uL (4.0-10.0)
[2022-07-01 11:34] LABS: ALBUMIN 3.5 G/DL (3.2-5.2); ALKALINE PHOSPHATASE 94 U/L (46-116); ALT/SGPT 21 U/L (7.0-40); AST/SGOT 22 U/L (<34); BILIRUBIN,TOTAL 1.2 MG/DL (0.3-1.2); BLOOD UREA NITROGEN 19 MG/DL (9-23); CALCIUM LEVEL 9.1 MG/DL (8.3-10.6); CARBON DIOXIDE LEVEL 28 MMOL/L (20-31); CHLORIDE LEVEL 108 MMOL/L (98-107); CREATININE FOR GFR 1.03 MG/DL (0.70-1.30); GLOMERULAR FILTRATION RATE > 60.0 (>35); GLUCOSE, FASTING 97 MG/DL (74-106); POTASSIUM SERUM 4.5 MMOL/L (3.5-5.1); SODIUM LEVEL 144 MMOL/L (136-145); TOTAL PROTEIN 6.5 G/DL (5.7-8.2)
== END ==
LOC: M PLALAB 09:08
PROVIDERS: ATTEND Nurse Practitioner Family
DX: I50.32 Chronic diastolic (congestive) heart failure (principal); I10 Essential (primary) hypertension

== ENCOUNTER → 2022-11-07 | Outpatient (REF) | payer MEDICARE | LOC: M SFHCDERM 18:12 | PROVIDERS: ATTEND Physician Assistant | DX: C44.622 Squamous cell carcinoma of skin of right upper limb, including shoulder (principal) ==

== ENCOUNTER → 2022-12-10 | Outpatient (REF) | payer MEDICARE | LOC: M SFHCDERM 12:07 | PROVIDERS: ATTEND Physician Assistant | DX: C44.622 Squamous cell carcinoma of skin of right upper limb, including shoulder (principal) ==

== ENCOUNTER → 2023-06-04 | Outpatient (CLI) | payer MEDICARE ==
[2023-06-04 14:23] LABS: BASO # 0.1 10^3/uL (0.0-0.2); BASO % 0.6 % (0.0-1.0); EOS # 0.1 10^3/uL (0.0-0.5); HEMATOCRIT 47.5 % (42.0-52.0); HEMOGLOBIN 14.9 g/dl (13.5-17.5); LYMPH # 2.9 10^3/uL (1.5-5.0); MEAN CORPUSCULAR HEMOGLOBIN 28.7 pg (27.0-33.0); MEAN CORPUSCULAR HGB CONC 31.4 g/dl (32.0-36.5); MEAN CORPUSCULAR VOLUME 91.3 fl (80.0-96.0); MONO # 0.7 10^3/uL (0.0-0.8); MONO % 9.4 % (2.0-8.0); NEUTROPHILS # 4.1 10^3/uL (1.5-8.5); NEUTROPHILS % 51.5 % (36.0-66.0); PLATELET COUNT, AUTOMATED 206 10^3/uL (150-450); WHITE BLOOD COUNT 7.9 10^3/uL (4.0-10.0)
[2023-06-04 14:52] LABS: ALBUMIN 3.5 G/DL (3.2-5.2); ALKALINE PHOSPHATASE 95 U/L (46-116); ALT/SGPT 22 U/L (7.0-40); AST/SGOT 19 U/L (<34); BLOOD UREA NITROGEN 22 MG/DL (9-23); CALCIUM LEVEL 8.8 MG/DL (8.3-10.6); CARBON DIOXIDE LEVEL 26 MMOL/L (20-31); CHLORIDE LEVEL 109 MMOL/L (98-107); CREATININE FOR GFR 1.08 MG/DL (0.70-1.30); GLOMERULAR FILTRATION RATE > 60.0 (>35); GLUCOSE, FASTING 103 MG/DL (74-106); POTASSIUM SERUM 4.7 MMOL/L (3.5-5.1); SODIUM LEVEL 143 MMOL/L (136-145); TOTAL PROTEIN 6.6 G/DL (5.7-8.2)
== END ==
LOC: M PLALAB 09:45
PROVIDERS: ATTEND Nurse Practitioner Family
DX: I10 Essential (primary) hypertension (principal)

== ENCOUNTER → 2023-12-23 | Outpatient (REF) | payer MEDICARE | LOC: M LAB REF 17:05 | PROVIDERS: ATTEND Registered Nurse | DX: R30.0 Dysuria (principal) ==

== ENCOUNTER 2024-02-19 16:14 | Emergency (ER) | payer MEDICARE ==
[~2024-02-19] VITALS: Ht 175.3 cm; Wt 98.8 kg
[2024-02-19] MEDS ORDERED: ATOR80TA59 PO (16:37)
[2024-02-19 16:50] VITALS: BP 143/114
[2024-02-19] MEDS: NITROGLYCERIN 0.4MG SUBL TABLET SL PRN (16:50)
[2024-02-19] MEDS: ASPIRIN 81MG CHEW TABLET PO ONE (16:50)
[2024-02-19 16:51] LABS: BASO # 0.1 10^3/uL (0.0-0.2); BASO % 0.7 % (0.0-1.0); EOS # 0.2 10^3/uL (0.0-0.5); EOS % 2.8 % (0.0-3.0); HEMATOCRIT 43.7 % (42.0-52.0); HEMOGLOBIN 14.1 g/dl (13.5-17.5); LYMPH # 3.1 10^3/uL (1.5-5.0); LYMPH % 41.6 % (24.0-44.0); MEAN CORPUSCULAR HEMOGLOBIN 28.9 pg (27.0-33.0); MEAN CORPUSCULAR HGB CONC 32.3 g/dl (32.0-36.5); MEAN CORPUSCULAR VOLUME 89.5 fl (80.0-96.0); MONO # 0.8 10^3/uL (0.0-0.8); MONO % 10.5 % (2.0-8.0); NEUTROPHILS # 3.3 10^3/uL (1.5-8.5); PLATELET COUNT, AUTOMATED 200 10^3/uL (150-450); RED BLOOD COUNT 4.88 10^6/uL (4.30-6.10); WHITE BLOOD COUNT 7.5 10^3/uL (4.0-10.0)
[2024-02-19 17:10] LABS: INR 1.04; PARTIAL THROMBOPLASTIN TIME 24.7 SECONDS (24.8-34.2); PROTHROMBIN TIME 13.3 SECONDS (12.5-14.5)
[2024-02-19 17:11] LABS: CK-MB VALUE MASS 1.2 NG/ML (<3.6); LIPASE 31 U/L (12-53)
[2024-02-19 17:13] LABS: ALBUMIN 3.4 G/DL (3.2-5.2); ALKALINE PHOSPHATASE 131 U/L (46-116); ALT/SGPT 20 U/L (7.0-40); AST/SGOT 23 U/L (<34); BILIRUBIN,DIRECT 0.2 MG/DL (<0.4); BILIRUBIN,TOTAL 0.6 MG/DL (0.3-1.2); BLOOD UREA NITROGEN 21 MG/DL (9-23); CALCIUM LEVEL 8.8 MG/DL (8.3-10.6); CARBON DIOXIDE LEVEL 27 MMOL/L (20-31); CHLORIDE LEVEL 110 MMOL/L (98-107); CREATININE FOR GFR 1.11 MG/DL (0.70-1.30); GLOMERULAR FILTRATION RATE > 60.0 (>35); GLUCOSE, FASTING 101 MG/DL (74-106); POTASSIUM SERUM 4.2 MMOL/L (3.5-5.1); SODIUM LEVEL 141 MMOL/L (136-145); TOTAL PROTEIN 6.8 G/DL (5.7-8.2)
[2024-02-19 17:15] LABS: FREE T4 1.26 NG/DL (0.89-1.76); THYROID STIMULATING HORMONE 1.334 uIU/ML (0.55-4.78)
[2024-02-19 17:18] LABS: CPK CREATINE PHOSPHOKINASE 84 U/L (46-171); MB/CK RELATIVE INDEX 1.42 (< OR =4)
[2024-02-19 18:21] LABS: MB/CK RELATIVE INDEX 1.29 (< OR =4)
[2024-02-19] MEDS ORDERED: TAMS1CAP17 PO (19:12)
[2024-02-19] MEDS ORDERED: HOME MED LIST COMPLETE! XX SCH (19:15)
[2024-02-19 20:10] LABS: RSV AMPLIFICATION NEGATIVE (NEGATIVE)
[2024-02-19] MEDS ORDERED: ACETAMINOPHEN TAB 650MG DOSE (2X325MG) PO PRN (21:30)
[2024-02-19] MEDS: ATORVASTATIN 20 MG TAB PO SCH (23:03)
[2024-02-20] MEDS ORDERED: TIOTROPIUM INHALER/CAPSULE (SPIRIVA) INH SCH (08:00)
[2024-02-20 08:30] VITALS: BP 142/64; TEMP 97.8; O2SAT 98
[2024-02-20] MEDS ORDERED: LOSARTAN 25 MG TAB PO SCH (09:00)
[2024-02-20] MEDS ORDERED: TAMSULOSIN 0.4 MG CAP PO SCH (09:00)
[2024-02-20] MEDS ORDERED: ASPIRIN 81MG CHEW TABLET PO SCH (09:00)
== END 2024-02-20 08:38 | disposition short-term general hospital (02) ==
LOC: M ED 16:14 → CANBEDREQ 20:24 → M ED 02-20 08:38
DX: R55 Syncope and collapse (principal); R00.1 Bradycardia, unspecified; J44.9 Chronic obstructive pulmonary disease, unspecified; I25.2 Old myocardial infarction; E78.5 Hyperlipidemia, unspecified; I10 Essential (primary) hypertension; M54.50 Low back pain, unspecified; F32.A Depression, unspecified; C18.9 Malignant neoplasm of colon, unspecified; F32.9 Major depressive disorder, single episode, unspecified; Z87.891 Personal history of nicotine dependence; Z79.82 Long term (current) use of aspirin; Z79.02 Long term (current) use of antithrombotics/antiplatelets; Z79.899 Other long term (current) drug therapy

== ENCOUNTER → 2024-06-11 | Outpatient (CLI) | payer MEDICARE ==
[~2024-06-11] MED LIST changes: -ADV250INH; +ADVA1AER9; +ATOR-398 PO; -LIPI80TA PO; +TAMS1CAP17 PO
[2024-06-11 13:25] LABS: BASO # 0.1 10^3/uL (0.0-0.2); BASO % 0.6 % (0.0-1.0); EOS # 0.2 10^3/uL (0.0-0.5); EOS % 2.2 % (0.0-3.0); HEMATOCRIT 46.2 % (42.0-52.0); HEMOGLOBIN 14.7 g/dl (13.5-17.5); LYMPH # 3.9 10^3/uL (1.5-5.0); LYMPH % 41.3 % (24.0-44.0); MEAN CORPUSCULAR HEMOGLOBIN 28.4 pg (27.0-33.0); MEAN CORPUSCULAR HGB CONC 31.8 g/dl (32.0-36.5); MEAN CORPUSCULAR VOLUME 89.4 fl (80.0-96.0); MONO # 0.9 10^3/uL (0.0-0.8); MONO % 9.3 % (2.0-8.0); NEUTROPHILS # 4.4 10^3/uL (1.5-8.5); NEUTROPHILS % 46.3 % (36.0-66.0); PLATELET COUNT, AUTOMATED 199 10^3/uL (150-450); RED BLOOD COUNT 5.17 10^6/uL (4.30-6.10); WHITE BLOOD COUNT 9.4 10^3/uL (4.0-10.0)
[2024-06-11 13:27] LABS: ALBUMIN 3.2 G/DL (3.2-5.2); ALKALINE PHOSPHATASE 113 U/L (40-129); ALT/SGPT 19 U/L (7.0-40); AST/SGOT 20 U/L (<34); BILIRUBIN,TOTAL 0.7 MG/DL (0.3-1.2); BLOOD UREA NITROGEN 20 MG/DL (9-23); CALCIUM LEVEL 9.3 MG/DL (8.3-10.6); CARBON DIOXIDE LEVEL 28 MMOL/L (20-31); CHLORIDE LEVEL 108 MMOL/L (98-107); CREATININE FOR GFR 1.02 MG/DL (0.70-1.30); GLOMERULAR FILTRATION RATE > 60.0 (>35); GLUCOSE, FASTING 88 MG/DL (74-106); POTASSIUM SERUM 4.6 MMOL/L (3.5-5.1); SODIUM LEVEL 144 MMOL/L (136-145); TOTAL PROTEIN 6.9 G/DL (5.7-8.2)
== END ==
LOC: M PLALAB 10:18
PROVIDERS: ATTEND Nurse Practitioner Family
DX: I10 Essential (primary) hypertension (principal)

== ENCOUNTER → 2025-01-20 | Outpatient (CLI) | payer MEDICARE | LOC: M PLAIMG 09:43 | PROVIDERS: ATTEND Nurse Practitioner Family | DX: R05.9 Cough, unspecified (principal) ==

== ENCOUNTER → 2025-05-03 | Outpatient (CLI) | payer MEDICARE ==
[2025-05-03 15:14] LABS: BASO # 0.0 10^3/uL (0.0-0.2); BASO % 0.4 % (0.0-1.0); EOS # 0.1 10^3/uL (0.0-0.5); EOS % 0.9 % (0.0-3.0); LYMPH # 4.9 10^3/uL (1.5-5.0); LYMPH % 47.8 % (24.0-44.0); MONO # 0.8 10^3/uL (0.0-0.8); MONO % 7.7 % (2.0-8.0); NEUTROPHILS # 4.4 10^3/uL (1.5-8.5); NEUTROPHILS % 42.8 % (36.0-66.0); PLATELET COUNT, AUTOMATED 183 10^3/uL (150-450)
[2025-05-03 15:28] LABS: ALT/SGPT 31.0 U/L (7.0-40); AST/SGOT 30.0 U/L (<34); CALCIUM LEVEL 8.7 MG/DL (8.3-10.6); CARBON DIOXIDE LEVEL 28.0 MMOL/L (20-31); CHLORIDE LEVEL 104.0 MMOL/L (98-107); CREATININE FOR GFR 1.22 MG/DL (0.70-1.30); FREE T4 1.21 NG/DL (0.89-1.76); GLOMERULAR FILTRATION RATE 57.0 (>35); MAGNESIUM LEVEL 2.0 MG/DL (1.8-2.4); POTASSIUM SERUM 4.5 MMOL/L (3.5-5.1); SODIUM LEVEL 140.0 MMOL/L (136-145)
[2025-05-03 15:32] LABS: CPK CREATINE PHOSPHOKINASE 79.0 U/L (46-171)
== END ==
LOC: M PLALAB 12:45
PROVIDERS: ATTEND Nurse Practitioner Family
DX: R42 Dizziness and giddiness (principal); R07.9 Chest pain, unspecified; Z79.899 Other long term (current) drug therapy